=== PATIENT | female | born 1955 | race Caucasian/White ===

== ENCOUNTER → 2016-12-16 | Outpatient (CLI) | payer OTHER ==
--- NOTE | 2016-12-16 14:21 | XR ---
EXAMINATION TYPE: XR knee complete bilateral DATE OF EXAM: 12/16/2016 2:13 PM COMPARISON: NONE HISTORY: Bilateral hip and knee pain TECHNIQUE: 3 views bilateral knees FINDINGS: Left knee: Joint spaces are preserved. No joint effusion is evident. No acute fractures are evident. Right knee: Joint spaces are preserved. No acute fractures are evident. No joint effusion is evident. IMPRESSION: 1. Normal bilateral knees
--- NOTE | 2016-12-16 14:23 | XR ---
EXAMINATION TYPE: XR Hip Bilateral Complete DATE OF EXAM: 12/16/2016 2:13 PM COMPARISON: NONE HISTORY: Bilateral hip and knee pain TECHNIQUE: 2 views bilateral hips FINDINGS: There is narrowing of the joint space of the left hip. The femoral head articulates with th e acetabulum. No acute fractures evident. There is narrowing of the joint space of the right hip. Femoral head articulates with the acetabulum. No acute fractures are evident. IMPRESSION: 1. Mild to moderate bilateral joint space narrowing of the bilateral hips.
== END | disposition home or self-care (01) ==
LOC: RADXRMAIN 13:46
PROVIDERS: ATTEND Family Medicine
DX: M25.852 Other specified joint disorders, left hip (principal); M25.851 Other specified joint disorders, right hip; M25.551 Pain in right hip; M25.552 Pain in left hip; M25.561 Pain in right knee; M25.562 Pain in left knee
CPT/HCPCS: 73521

== ENCOUNTER → 2019-08-17 | Outpatient (CLI) | payer MEDICARE, BC ==
--- NOTE | 2019-08-17 15:17 | XR ---
EXAMINATION TYPE: XR chest 2V DATE OF EXAM: 08/17/2019 COMPARISON: 09/24/2008 HISTORY: Chest pain and congestion TECHNIQUE: Frontal and lateral views of the chest are obtained. FINDINGS: There is no focal air space opacity, pleural effusion, or pneumothorax seen. The cardiac silhouette size is within normal limits. The osseous structures are intact. Minimal degenerative ch anges of the thoracic spine. IMPRESSION: No acute cardiopulmonary process.
--- NOTE | 2019-08-17 15:26 | XR ---
EXAMINATION TYPE: XR sinus DATE OF EXAM: 08/17/2019 CLINICAL HISTORY: Chronic congestion TECHNIQUE: Abel, John, and lateral image of the skull are obtained. COMPARISON: None. FINDINGS: There is mild mucosal thickening of the right maxillary sinus. Remaining paranasal sinuses and mastoid air cells appear well aerated. Orbits are symmetric. Very minimal rightward nasal septal deviation. Calvarium appears intact. Multiple dental fillings are incidentally seen.. IMPRESSION: Mild right maxillary mucosal thickening.
== END | disposition home or self-care (01) ==
LOC: RADXRMAIN 14:13
PROVIDERS: ATTEND Family Medicine
DX: J32.0 Chronic maxillary sinusitis (principal); R07.89 Other chest pain
CPT/HCPCS: 70220; 71046

== ENCOUNTER → 2020-06-01 | Outpatient (CLI) | payer MEDICARE, BC ==
--- NOTE | 2020-06-01 12:28 | NM ---
EXAMINATION TYPE: NM hepatobiliary wo EF DATE OF EXAM: 06/01/2020 COMPARISON: NONE INDICATION: Gallbladder obstruction TECHNIQUE: After the intravenous administration of 5.02 mCi Tc 99m Mebrofenin hepatobiliary scintigra phy is performed. Images were obtained immediately post injection. FINDINGS: There is prompt uptake and excretion of radiotracer by the liver. Extrahepatic ducts are identified at 14 minutes. Small bowel activity is noted within 19 minutes. There is nonvisualization of the gallbladder through the normal one hour exam. Additional delayed shantell ges were obtained out to 4 hours. No clear evidence of the gallbladder is identified. Some residual w ithin the common bile duct may be present. Findings can be compatible with cystic duct obstruction. IMPRESSION: 1. Findings can be compatible with cystic duct obstruction. Correlate for acute cholecystitis.
== END | disposition home or self-care (01) ==
LOC: RADNMMAIN 07:02
PROVIDERS: ATTEND Family Medicine
DX: K82.0 Obstruction of gallbladder (principal)
CPT/HCPCS: 78226; A9537

== ENCOUNTER → 2020-07-12 | Outpatient (CLI) | payer MEDICARE, BC ==
--- NOTE | 2020-07-12 12:04 | CT ---
EXAMINATION TYPE: CT abdomen wo con DATE OF EXAM: 07/12/2020 COMPARISON: Correlation HIDA scan 06/01/2020 HISTORY: 65-year-old female RUQ pain and diarrhea TECHNIQUE: Contiguous axial scanning of the abdomen without IV contrast. Coronal and sagittal reconst ructions performed. CT DLP: 159.9 mGycm Automated exposure control for dose reduction was used. FINDINGS: Heart normal size without pericardial effusion. Lung bases clear without pleural effusion. Noncontrast appearance of the liver, adrenal glands, spleen, and pancreas, and left kidney within nor mal limits. Mild fullness of the right renal collecting system may be transient. No nephrolithiasis is seen. Gallbladder is surgically absent. Bile duct mildly dilated at 9 mm. No dilated small bowel, free fluid, or free air. No mesenteric or retroperitoneal lymphadenopathy. Mild stool burden. No periglottic inflammatory change. Normal appendix. Degenerative disc disease L5-S1 and facet arthropathy lower lumbar spine. IMPRESSION: 1. THE BILE DUCT IS MILDLY DILATED AT 9 MM. THIS MAY RELATE TO POSTCHOLECYSTECTOMY STATUS. CORRELATE WITH ALKALINE PHOSPHATASE AND BILIRUBIN LEVELS. 2. MILD FULLNESS OF THE RIGHT RENAL COLLECTING SYSTEM, PROBABLY TRANSIENT. NO RENAL CALCULUS IS SEEN. IF THERE IS RIGHT-SIDED RENAL COLIC, CONSIDER A CALCULUS LOCATED MORE INFERIORLY IN THE URETER.
== END | disposition home or self-care (01) ==
LOC: RADCTMAIN 09:08
PROVIDERS: ATTEND Surgery
DX: K83.8 Other specified diseases of biliary tract (principal); N28.89 Other specified disorders of kidney and ureter
CPT/HCPCS: 74150

== ENCOUNTER 2021-07-28 07:57 | Emergency (ER) | payer MEDICARE, BC ==
[2021-07-28 08:09] VITALS: TEMP 98.1
[2021-07-28] MEDS ORDERED: SODIUM CHLORIDE 0.9% 500 ML 500 ML IV STA (08:12)
[2021-07-28] MEDS ORDERED: SODIUM CHLORIDE 0.9% 1,000 ML IV STA (08:12)
[2021-07-28] MEDS ORDERED: ONDANSETRON 4 MG/2 ML VIAL IVP STA (08:45)
[2021-07-28 08:47] LABS: Basophils % (A) 0 %; Eosinophils % (A) 0 %; HCT 40.2 % (34.0-46.0); HGB 13.3 gm/dL (11.4-16.0); Lymphocytes % (A) 21 %; MCH 30.5 pg (25.0-35.0); MCV 92.4 fL (80.0-100.0); Mean Platelet Volume 6.9; Monocytes # (A) 0.3 k/uL (0-1.0); Monocytes % (A) 6 %; Neutrophils # (A) 3.5 k/uL (1.3-7.7); Neutrophils % (A) 71 %; Platelet Count 157 k/uL (150-450); RBC 4.35 m/uL (3.80-5.40); RDW 12.3 % (11.5-15.5); WBC 4.9 k/uL (3.8-10.6)
--- NOTE | 2021-07-28 08:53 | ED ---
General Adult HPI - General Chief complaint: Syncope Stated complaint: cough/fever/sob Time Seen by Provider: 07/28/21 08:01 Source: patient, EMS, RN notes reviewed Mode of arrival: EMS Limitations: no limitations - History of Present Illness Initial comments: 66-year-old female presents emergency Department with chief complaint of generalized weakness, syncopal episode, diarrhea mild cough congestion. Patient has been sick over the last 4 days. Patient has been getting worse in which she feels very thirsty, very weak feeling. Patient denies any abdominal pain. She was placed on antibiotics and steroids. Patient states her blood sugar was elev ated secondary steroids. Patient had multiple sick contacts. Patient did not have a head injury no complaint of head and neck pain. - Related Data Home Medications Medication Instructions Recorded Confirmed ALPRAZolam [Xanax] 1 mg PO BID PRN 05/08/16 07/28/21 Dapagliflozin Propanediol [Farxiga] 10 mg PO DAILY 05/08/16 07/28/21 Multivitamins, Thera [Multivitamin 1 tab PO DAILY 07/28/21 07/28/21 (formulary)] Zinc Gluconate [Zinc] 50 mg PO DAILY 07/28/21 07/28/21 metFORMIN HCL [Glucophage] 1,000 mg PO W/SUPPER 07/28/21 07/28/21 Allergies Allergy/AdvReac Type Severity Reaction Status Date / Time No Known Allergies Allergy Verified 07/28/21 09:54 Review of Systems ROS Statement: Those systems with pertinent positive or pertinent negative responses have been documented in the HPI. ROS Other: All systems not noted in ROS Statement are negative. Past Medical History Past Medical History: Diabetes Mellitus Additional Past Medical History / Comment(s): past hx of palpitations, chest pain History of Any Multi-Drug Resistant Organisms: None Reported Past Surgical History: Orthopedic Surgery Additional Past Surgical History / Comment(s): middle rt hand sx Past Anesthesia/Blood Transfusion Reactions: Motion Sickness Past Psychological History: Anxiety Smoking Status: Never smoker Past Alcohol Use History: None Reported Past Drug Use History: None Reported - Past Family History Brother(s) Family Medical History: Cancer Additional Family Medical History / Comment(s): kidney, skin General Exam Limitations: no limitations General appearance: alert, in no apparent distress Head exam: Present: atraumatic, normocephalic, normal inspection Eye exam: Present: normal appearance, PERRL, EOMI. Absent: scleral icterus, conjunctival injection, periorbital swelling ENT exam: Present: normal oropharynx, mucous membranes dry. Absent: normal exam, mucous membranes moist Neck exam: Present: normal inspection, full ROM. Absent: tenderness, meningismus, lymphadenopathy Respiratory exam: Present: normal lung sounds bilaterally. Absent: respiratory distress, wheezes, rales, rhonchi, stridor Cardiovascular Exam: Present: regular rate, normal rhythm, normal heart sounds. Absent: systolic murmur, diastolic murmur, rubs, gallop, clicks GI/Abdominal exam: Present: soft, normal bowel sounds. Absent: distended, tenderness, guarding, rebound, rigid Neurological exam: Present: alert, oriented X3, CN II-XII intact, reflexes diane l. Absent: motor sensory deficit Skin exam: Present: warm, dry, intact, normal color. Absent: rash Course Vital Signs 07/28/21 07/28/21 07/28/21 08:05 09:53 11:01 Temperature 98.1 F Pulse Rate 86 88 Respiratory 18 16 Rate Blood Pressure 119/66 119/63 O2 Sat by Pulse 95 97 93 L Oximetry 07/28/21 11:42 Temperature Pulse Rate 92 Respiratory 19 Rate Blood Pressure O2 Sat by Pulse 96 Oximetry Medical Decision Making - Medical Decision Making 58-year-old female presented for normalized weakness, not feeling well. Patient x-rays unremarkable patient is covid 19 positive. Patient did have mild hypokalemia which was replaced, hydrated patient be discharged stable condition we discussed. Strict return parameters. - Lab Data Result diagrams: 07/28/21 08:29 07/28/21 08:29 Lab Results 07/28/21 07/28/21 07/28/21 Range/Units 08:29 08:29 08:29 WBC 4.9 (3.8-10.6) k/uL RBC 4.35 (3.80-5.40) m/uL Hgb 13.3 (11.4-16.0) gm/dL Hct 40.2 (34.0-46.0) % MCV 92.4 (80.0-100.0) fL MCH 30.5 (25.0-35.0) pg MCHC 33.0 (31.0-37.0) g/dL RDW 12.3 (11.5-15.5) % Plt Count 157 (150-450) k/uL MPV 6.9 Neutrophils % 71 % Lymphocytes % 21 % Monocytes % 6 % Eosinophils % 0 % Basophils % 0 % Neutrophils # 3.5 (1.3-7.7) k/uL Lymphocytes # 1.0 (1.0-4.8) k/uL Monocytes # 0.3 (0-1.0) k/uL Eosinophils # 0.0 (0-0.7) k/uL Basophils # 0.0 (0-0.2) k/uL PT 9.8 (9.0-12.0) sec INR 0.9 (<1.2) APTT 23.2 (22.0-30.0) sec D-Dimer 0.31 (<0.60) mg/L FEU Sodium 131 L (137-145) mmol/L Potassium 3.4 L (3.5-5.1) mmol/L Chloride 100 (98-107) mmol/L Carbon Dioxide 22 (22-30) mmol/L Anion Gap 9 mmol/L BUN 13 (7-17) mg/dL Creatinine 0.54 (0.52-1.04) mg/dL Est GFR (CKD-EPI)AfAm >90 (>60 ml/min/1.73 sqM) Est GFR (CKD-EPI)NonAf >90 (>60 ml/min/1.73 sqM) Glucose 129 H (74-99) mg/dL Calcium 7.9 L (8.4-10.2) mg/dL Magnesium 2.2 (1.6-2.3) mg/dL Total Bilirubin 0.5 (0.2-1.3) mg/dL AST 60 H (14-36) U/L ALT 32 (4-34) U/L Alkaline Phosphatase 70 (38-126) U/L Troponin I (0.000-0.034) ng/mL Total Protein 5.7 L (6.3-8.2) g/dL Albumin 3.1 L (3.5-5.0) g/dL Urine Color Urine Appearance (Clear) Urine pH (5.0-8.0) Ur Specific [place] (1.001-1.035) Urine Protein (Negative) Urine Glucose (UA) (Negative) Urine Ketones (Negative) Urine Blood (Negative) Urine Nitrite (Negative) Urine Bilirubin (Negative) Urine Urobilinogen (<2.0) mg/dL Ur Leukocyte Esterase (Negative) Coronavirus (PCR) (Not Detectd) 07/28/21 07/28/21 07/28/21 Range/Units 08:29 08:29 11:32 WBC (3.8-10.6) k/uL RBC (3.80-5.40) m/uL Hgb (11.4-16.0) gm/dL Hct (34.0-46.0) % MCV (80.0-100.0) fL MCH (25.0-35.0) pg MCHC (31.0-37.0) g/dL RDW (11.5-15.5) % Plt Count (150-450) k/uL MPV Neutrophils % % Lymphocytes % % Monocytes % % Eosinophils % % Basophils % % Neutrophils # (1.3-7.7) k/uL Lymphocytes # (1.0-4.8) k/uL Monocytes # (0-1.0) k/uL Eosinophils # (0-0.7) k/uL Basophils # (0-0.2) k/uL PT (9.0-12.0) sec INR (<1.2) APTT (22.0-30.0) sec D-Dimer (<0.60) mg/L FEU Sodium (137-145) mmol/L Potassium (3.5-5.1) mmol/L Chloride (98-107) mmol/L Carbon Dioxide (22-30) mmol/L Anion Gap mmol/L BUN (7-17) mg/dL Creatinine (0.52-1.04) mg/dL Est GFR (CKD-EPI)AfAm (>60 ml/min/1.73 sqM) Est GFR (CKD-EPI)NonAf (>60 ml/min/1.73 sqM) Glucose (74-99) mg/dL Calcium (8.4-10.2) mg/dL Magnesium (1.6-2.3) mg/dL Total Bilirubin (0.2-1.3) mg/dL AST (14-36) U/L ALT (4-34) U/L Alkaline Phosphatase (38-126) U/L Troponin I <0.012 (0.000-0.034) ng/mL Total Protein (6.3-8.2) g/dL Albumin (3.5-5.0) g/dL Urine Color Light Yellow Urine Appearance Clear (Clear) Urine pH 5.0 (5.0-8.0) Ur Specific [place] 1.007 (1.001-1.035) Urine Protein Negative (Negative) Urine Glucose (UA) 4+ H (Negative) Urine Ketones 2+ H (Negative) Urine Blood Negative (Negative) Urine Nitrite Negative (Negative) Urine Bilirubin Negative (Negative) Urine Urobilinogen <2.0 (<2.0) mg/dL Ur Leukocyte Esterase Negative (Negative) Coronavirus (PCR) Detected A (Not Detectd) Disposition Clinical Impression: COVID-19, Dehydration Disposition: HOME SELF-CARE Condition: Stable Instructions (If sedation given, give patient instructions): Coronavirus Disease 2019 (COVID-19) Additional Instructions: Please return to the Emergency Department if symptoms worsen or any other concerns. Is patient prescribed a controlled substance at d/c from ED?: No Referrals: Dae Mejia DO [Primary Care Provider] - 1-2 days Time of Disposition: 12:24
[2021-07-28 09:01] LABS: ALT 32 U/L (4-34); AST 60 U/L (14-36); African American GFR (CKD) >90 (>60 ml/min/1.73 sqM); Albumin 3.1 g/dL (3.5-5.0); Alkaline Phosphatase 70 U/L (38-126); Anion Gap 9 mmol/L; Blood Urea Nitrogen 13 mg/dL (7-17); Calcium 7.9 mg/dL (8.4-10.2); Carbon Dioxide 22 mmol/L (22-30); Chloride 100 mmol/L (98-107); Glucose 129 mg/dL (74-99); Magnesium 2.2 mg/dL (1.6-2.3); Non-African American GFR(CKD) >90 (>60 ml/min/1.73 sqM); Potassium 3.4 mmol/L (3.5-5.1); Sodium 131 mmol/L (137-145); Total Bilirubin 0.5 mg/dL (0.2-1.3); Total Protein 5.7 g/dL (6.3-8.2)
--- NOTE | 2021-07-28 09:03 | XR ---
EXAMINATION TYPE: XR chest 2V DATE OF EXAM: 07/28/2021 COMPARISON: 08/17/2019 INDICATION: Syncope TECHNIQUE: Frontal and lateral views of the chest are obtained. FINDINGS: The heart size is normal. The pulmonary vasculature is normal. No suspicious focal consolidations are evident. Minimal atelectasis may be at the left base. IMPRESSION: 1. Minimal atelectasis at the left costophrenic angle.
[2021-07-28 09:13] LABS: INR 0.9 (<1.2); Partial Thromboplastin Time 23.2 sec (22.0-30.0); Prothrombin Time 9.8 sec (9.0-12.0)
[2021-07-28] MEDS ORDERED: POTASSIUM CHLORIDE ER 20 MEQ TAB.ER PO STA (09:26)
[2021-07-28 09:53] VITALS: BP 119/63
[2021-07-28] MEDS ORDERED: SODIUM CHLORIDE 0.9% 500 ML 500 ML IV ONE (09:55)
[2021-07-28] MEDS ORDERED: ACETAMINOPHEN TAB 500 MG TAB PO STA (09:55)
[2021-07-28] MEDS ORDERED: KETOROLAC 15 MG/ML 1 ML VIAL IVP STA (09:55)
[2021-07-28] MEDS ORDERED: CASIRIVIMAB/IMDEVIMAB (EUA) 1,200 MG in SODIUM CHLORIDE 0.9% 100 ML IVPB ONE (10:00)
[2021-07-28] MEDS ORDERED: SODIUM CHLORIDE 0.9% 50 ML IVPB ONE (10:30)
[2021-07-28 11:45] LABS: Appearance,Urine Clear (Clear); Bilirubin,Urine Negative (Negative); Blood,Urine Negative (Negative); Color,Urine Light Yellow; Glucose,Urine (UA) 4+ (Negative); Leukocyte Esterase,Urine Negative (Negative); Nitrite,Urine Negative (Negative); Protein,Urine Negative (Negative); Specific Gravity,Urine 1.007 (1.001-1.035); Urobilinogen,Urine <2.0 mg/dL (<2.0)
[2021-07-28 11:53] LABS: Ketones,Urine 2+ (Negative)
[2021-07-28 12:34] VITALS: PULSE 70; RESP 18
== END 2021-07-28 12:33 | disposition home or self-care (01) ==
LOC: EC 07:57
DX: U07.1 COVID-19 (principal); E86.0 Dehydration; E11.9 Type 2 diabetes mellitus without complications; Z79.84 Long term (current) use of oral hypoglycemic drugs
CPT/HCPCS: 96361 ×2; 99285 ×2; 96375; 36415; 93005; 85379; 80053; 83735; 84484; 85025; 85610; 85730; 81003; 87635; 71046; 96374; M0243; J2405; J1885; Q0243

== ENCOUNTER 2021-07-31 20:13 | Inpatient (IN) | payer MEDICARE, BC ==
[2021-07-31] MEDS ORDERED: ACETAMINOPHEN TAB 325 MG TAB PO PRN (20:45)
[2021-07-31] MEDS: ALBUTEROL HFA INHALER INHALATION PRN (21:41)
--- NOTE | 2021-07-31 21:54 | XR ---
EXAMINATION TYPE: XR chest 1V portable DATE OF EXAM: 07/31/2021 CLINICAL HISTORY: Suspected COVID-19 pneumonia. TECHNIQUE: Portable frontal view of the chest. COMPARISON: 07/28/2021 FINDINGS: The cardiomediastinal silhouette is within normal limits for size. Pulmonary vasculature i s normal. Developing patchy airspace opacity of the right upper lobe. There is also asymmetric hazine ss of the left midlung. No pleural effusion. No pneumothorax seen. No acute displaced osseous fractu re. IMPRESSION: Mild developing multifocal patchy airspace opacities bilaterally likely represents pneumonia.
[2021-07-31 22:30] LABS: Basophils % (A) 0 %; Eosinophils % (A) 0 %; HCT 40.2 % (34.0-46.0); HGB 13.2 gm/dL (11.4-16.0); Lymphocytes # (A) 1.3 k/uL (1.0-4.8); Lymphocytes % (A) 16 %; MCH 30.3 pg (25.0-35.0); MCHC 32.8 g/dL (31.0-37.0); MCV 92.4 fL (80.0-100.0); Mean Platelet Volume 7.5; Monocytes # (A) 0.3 k/uL (0-1.0); Monocytes % (A) 4 %; Neutrophils # (A) 6.4 k/uL (1.3-7.7); Neutrophils % (A) 78 %; Platelet Count 296 k/uL (150-450); RBC 4.35 m/uL (3.80-5.40); RDW 12.3 % (11.5-15.5); WBC 8.2 k/uL (3.8-10.6)
[2021-07-31 22:54] LABS: INR 0.8 (<1.2); Partial Thromboplastin Time 21.8 sec (22.0-30.0); Prothrombin Time 9.3 sec (9.0-12.0)
[2021-07-31 22:55] LABS: ALT 21 U/L (4-34); AST 27 U/L (14-36); African American GFR (CKD) >90 (>60 ml/min/1.73 sqM); Alkaline Phosphatase 89 U/L (38-126); Anion Gap 9 mmol/L; Blood Urea Nitrogen 16 mg/dL (7-17); C Reactive Protein 7.9 mg/dL (<1.0); Calcium 8.5 mg/dL (8.4-10.2); Carbon Dioxide 23 mmol/L (22-30); Chloride 101 mmol/L (98-107); Glucose 181 mg/dL (74-99); LDH 704 U/L (313-618); Magnesium 2.2 mg/dL (1.6-2.3); Non-African American GFR(CKD) >90 (>60 ml/min/1.73 sqM); Potassium 4.5 mmol/L (3.5-5.1); Sodium 133 mmol/L (137-145); Total Bilirubin 0.4 mg/dL (0.2-1.3); Total Protein 5.8 g/dL (6.3-8.2)
[2021-07-31] MEDS: DEXAMETHASONE SOD PHOSPHATE 10 MG/ML 1 ML VIAL IVP SCH (22:57)
[2021-07-31] MEDS ORDERED: ONDANSETRON 4 MG/2 ML VIAL IVP PRN (23:38)
[2021-07-31] MEDS ORDERED: ASPIRIN 81 MG PO PRN (23:41)
--- NOTE | 2021-08-01 00:23 | ED ---
General Adult HPI - General Chief complaint: Shortness of Breath Stated complaint: covid+, sob Time Seen by Provider: 07/31/21 20:35 Source: patient, RN notes reviewed, old records reviewed Mode of arrival: EMS Limitations: no limitations - History of Present Illness Initial comments: I evaluated the patient when she was placed in a room. Patient is a 66-year-old female with past medical history remarkable for diabetes who presents emergency Department complaining of being Covid positive worsening shortness of breath. Patient's daughter is a nurse and they've been monitoring her oxygenation at home, and it was an 80%'s today which is why she percents emergency department for evaluation. She states she is not really short of breath but feels f atigued. States that she tested positive on Thursday with most of her symptoms starting last Thursday. Is currently Thursday. She states all last week she was also treated for possible sinus infection she does have a history of this. She is not vaccinated for COVID-19 and has no known exposures. Denies any fevers. Patient's daughter did give her a one-time dose of ivermectin at home today. They brought her to emergency department for further evaluation. She denies any chest pain, abdominal pain. Denies any nausea, vomiting, diarrhea. She otherwise has no acute complaints at this time. Patient was hypoxic to 85% on room air upon arrival.Patient does endorse a nonproductive cough. - Related Data Home Medications Medication Instructions Recorded Confirmed ALPRAZolam [Xanax] 0.5 - 1 mg PO BID PRN 05/08/16 07/31/21 Dapagliflozin Propanediol [Farxiga] 10 mg PO DAILY 05/08/16 07/31/21 Multivitamins, Thera [Multivitamin 1 tab PO DAILY 07/28/21 07/31/21 (formulary)] Zinc Gluconate [Zinc] 50 mg PO DAILY 07/28/21 07/31/21 metFORMIN HCL [Glucophage] 1,000 mg PO W/SUPPER 07/28/21 07/31/21 Aspirin EC [Ecotrin Low Dose] 81 mg PO DAILY PRN 07/31/21 07/31/21 Azithromycin [Zithromax] 500 mg PO DAILY 07/31/21 07/31/21 Cholecalciferol (Vitamin D3) 125 mcg PO DAILY 07/31/21 07/31/21 [Vitamin D3 (125 MCG = 5,000 IU)] Famotidine [Pepcid] 20 mg PO DAILY 07/31/21 07/31/21 Montelukast [Singulair] 10 mg PO DAILY 07/31/21 07/31/21 Promethazine HCl 25 mg PO BID PRN 07/31/21 07/31/21 Quercetin Supplement 1 tab PO DAILY 07/31/21 07/31/21 predniSONE See Taper PO DIRECTED 07/31/21 07/31/21 Allergies Allergy/AdvReac Type Severity Reaction Status Date / Time No Known Allergies Allergy Verified 07/31/21 21:41 Review of Systems ROS Statement: Those systems with pertinent positive or pertinent negative responses have been documented in the HPI. Review of Systems: CONST: Endorses fatigue EYES: Denies blurry vision ENT: Denies nasal congestion C/V: Denies Chest pain RESP: Denies shortness of breath . Endorses cough GI: Denies abdominal pain : Denies dysuria SKIN: Denies rash. MSK: Denies joint pain. NEURO: Denies headache ROS Other: All systems not noted in ROS Statement are negative. Past Medical History Past Medical History: Diabetes Mellitus Additional Past Medical History / Comment(s): past hx of palpitations, chest pain History of Any Multi-Drug Resistant Organisms: None Reported Past Surgical History: Orthopedic Surgery Additional Past Surgical History / Comment(s): middle rt hand sx Past Anesthesia/Blood Transfusion Reactions: Motion Sickness Past Psychological History: Anxiety Smoking Status: Never smoker Past Alcohol Use History: None Reported Past Drug Use History: None Reported - Past Family History Brother(s) Family Medical History: Cancer Additional Family Medical History / Comment(s): kidney, skin General Exam - General Exam Comments Initial Comments: General: Appears in no acute distress. HEAD: Normal with no signs of head trauma. EYES: PERRLA, EOMI, conjunctiva normal, no discharge. ENT: Hearing grossly intact, normal oropharynx. RESPIRATORY: Coarse breath sounds bilaterally. No increased work of breathing. Hypoxic to 85% on room air, saturating 94% on 4 L nasal cannula C/V: Regular rate and rhythm. S1 and S2 auscultated, no edema, peripheral pulses 2+ and intact throughout ABD: Abd is soft, nontender, nondistended EXT: Normal range of motion, no obvious deformity SKIN: No rashes or lesions observed on exposed skin. NEURO: Alert and oriented x 4. Cranial nerves II-XII intact. No focal sensory or strength deficits. Limitations: no limitations Course Vital Signs 07/31/21 20:20 Temperature 99.2 F Pulse Rate 88 Respiratory 18 Rate Blood Pressure 117/67 O2 Sat by Pulse 85 L Oximetry Medical Decision Making - Medical Decision Making Based on the patient's presentation and physical exam, she appears to be expressing hypoxic respiratory failure secondary to COVID-19 pneumonia. Therefore we will obtain COVID-19 labs, chest x-ray, EKG, troponin. She'll be given twice a day Decadron in addition to Tylenol for fever control. She'll also be given albuterol breathing treatments. Infectious disease and pulmonology were both consulted. Screening EKG will be obtained. We will continue on 4 L nasal cannula she is saturating well at this time. She was in agreement this plan. Patient's chest x-ray shows findings concerning for multifocal patchy airspace opacities likely representing pneumonia in the setting of COVID-19 infection. Laboratory studies are remarkable for a normal d-dimer. Troponin is negative. LDH is elevated to 704. CRP is elevated to 7.9. She is Covid positive. She has mild hyponatremia of 133. EKG shows no signs of acute ischemia. Lactic acid is within normal limits. At this time, I discussed with the patient as well as her daughter that I would like to admitted to the hospital for her hypoxic respiratory failure secondary to COVID-19 pneumonia. They were in agreement this plan. I spoke with the admitting team under Dr. Brown who accepted the patient. She was admitted to medical floor to telemetry bed in serious condition. - Lab Data Result diagrams: 07/31/21 22:13 07/31/21 22:13 Lab Results 07/31/21 07/31/21 07/31/21 Range/Units 22:13 22:13 22:13 WBC 8.2 (3.8-10.6) k/uL RBC 4.35 (3.80-5.40) m/uL Hgb 13.2 (11.4-16.0) gm/dL Hct 40.2 (34.0-46.0) % MCV 92.4 (80.0-100.0) fL MCH 30.3 (25.0-35.0) pg MCHC 32.8 (31.0-37.0) g/dL RDW 12.3 (11.5-15.5) % Plt Count 296 (150-450) k/uL MPV 7.5 Neutrophils % 78 % Lymphocytes % 16 % Monocytes % 4 % Eosinophils % 0 % Basophils % 0 % Neutrophils # 6.4 (1.3-7.7) k/uL Lymphocytes # 1.3 (1.0-4.8) k/uL Monocytes # 0.3 (0-1.0) k/uL Eosinophils # 0.0 (0-0.7) k/uL Basophils # 0.0 (0-0.2) k/uL PT 9.3 (9.0-12.0) sec INR 0.8 (<1.2) APTT 21.8 L (22.0-30.0) sec D-Dimer 0.33 (<0.60) mg/L FEU Sodium (137-145) mmol/L Potassium (3.5-5.1) mmol/L Chloride (98-107) mmol/L Carbon Dioxide (22-30) mmol/L Anion Gap mmol/L BUN (7-17) mg/dL Creatinine (0.52-1.04) mg/dL Est GFR (CKD-EPI)AfAm (>60 ml/min/1.73 sqM) Est GFR (CKD-EPI)NonAf (>60 ml/min/1.73 sqM) Glucose (74-99) mg/dL Plasma Lactic Acid Guillermo (0.7-2.0) mmol/L Calcium (8.4-10.2) mg/dL Magnesium (1.6-2.3) mg/dL Total Bilirubin (0.2-1.3) mg/dL AST (14-36) U/L ALT (4-34) U/L Alkaline Phosphatase (38-126) U/L Lactate Dehydrogenase (313-618) U/L Troponin I <0.012 (0.000-0.034) ng/mL C-Reactive Protein (<1.0) mg/dL Total Protein (6.3-8.2) g/dL Albumin (3.5-5.0) g/dL Coronavirus (PCR) (Not Detectd) 07/31/21 07/31/21 07/31/21 Range/Units 22:13 22:13 22:13 WBC (3.8-10.6) k/uL RBC (3.80-5.40) m/uL Hgb (11.4-16.0) gm/dL Hct (34.0-46.0) % MCV (80.0-100.0) fL MCH (25.0-35.0) pg MCHC (31.0-37.0) g/dL RDW (11.5-15.5) % Plt Count (150-450) k/uL MPV Neutrophils % % Lymphocytes % % Monocytes % % Eosinophils % % Basophils % % Neutrophils # (1.3-7.7) k/uL Lymphocytes # (1.0-4.8) k/uL Monocytes # (0-1.0) k/uL Eosinophils # (0-0.7) k/uL Basophils # (0-0.2) k/uL PT (9.0-12.0) sec INR (<1.2) APTT (22.0-30.0) sec D-Dimer (<0.60) mg/L FEU Sodium 133 L (137-145) mmol/L Potassium 4.5 (3.5-5.1) mmol/L Chloride 101 (98-107) mmol/L Carbon Dioxide 23 (22-30) mmol/L Anion Gap 9 mmol/L BUN 16 (7-17) mg/dL Creatinine 0.48 L (0.52-1.04) mg/dL Est GFR (CKD-EPI)AfAm >90 (>60 ml/min/1.73 sqM) Est GFR (CKD-EPI)NonAf >90 (>60 ml/min/1.73 sqM) Glucose 181 H (74-99) mg/dL Plasma Lactic Acid Guillermo 1.4 (0.7-2.0) mmol/L Calcium 8.5 (8.4-10.2) mg/dL Magnesium 2.2 (1.6-2.3) mg/dL Total Bilirubin 0.4 (0.2-1.3) mg/dL AST 27 (14-36) U/L ALT 21 (4-34) U/L Alkaline Phosphatase 89 (38-126) U/L Lactate Dehydrogenase 704 H (313-618) U/L Troponin I (0.000-0.034) ng/mL C-Reactive Protein 7.9 H (<1.0) mg/dL Total Protein 5.8 L (6.3-8.2) g/dL Albumin 3.0 L (3.5-5.0) g/dL Coronavirus (PCR) Detected A (Not Detectd) - EKG Data -: EKG Interpreted by Me EKG Comments: 12-lead Electrocardiogram Interpretation Note EKG was reviewed and interpreted by myself. 12-lead ECG performed at 0025 is interpreted by me as revealing normal sinus rhythm at a rate of 86 beats per minute. Tiff is normal. CT interval is 176 ms, QTc is 1428 ms, QRS is 70 ms.. There is an isolated T-wave inversion in lead III.. R wave progression across the precordium was satisfactory. By my interpretation this EKG is non-diagnostic for acute ischemia. Disposition Clinical Impression: Pneumonia due to COVID-19 virus, Acute respiratory failure with hypoxia Disposition: ADMITTED IP TO THIS HOSP Condition: Serious
[2021-08-01] MEDS ORDERED: INSULIN ASPART (NovoLOG) 100 UNIT/ML VIAL SQ SCH (07:30)
[2021-08-01 07:38] LABS: Glucose,Whole Blood 182 mg/dL (75-99)
[2021-08-01] MEDS: ALBUTEROL HFA INHALER INHALATION PRN ×4 (08:01→21:28)
[2021-08-01] MEDS: ENOXAPARIN 40 MG/0.4 ML SYRINGE SQ SCH (08:07)
[2021-08-01] MEDS: MONTELUKAST 10 MG TAB PO SCH (08:08)
[2021-08-01] MEDS: FAMOTIDINE 20 MG TAB PO SCH (08:08)
[2021-08-01 08:44] LABS: Basophils % (A) 0 %; Eosinophils % (A) 0 %; HCT 46.4 % (34.0-46.0); HGB 15.2 gm/dL (11.4-16.0); Lymphocytes % (A) 17 %; MCH 31.1 pg (25.0-35.0); MCHC 32.7 g/dL (31.0-37.0); MCV 94.9 fL (80.0-100.0); Monocytes # (A) 0.1 k/uL (0-1.0); Monocytes % (A) 2 %; Neutrophils # (A) 4.5 k/uL (1.3-7.7); Neutrophils % (A) 79 %; Platelet Count 322 k/uL (150-450); RBC 4.89 m/uL (3.80-5.40); RDW 12.2 % (11.5-15.5); WBC 5.7 k/uL (3.8-10.6)
[2021-08-01 08:54] LABS: African American GFR (CKD) >90 (>60 ml/min/1.73 sqM); Anion Gap 12 mmol/L; Blood Urea Nitrogen 18 mg/dL (7-17); Calcium 9.4 mg/dL (8.4-10.2); Carbon Dioxide 25 mmol/L (22-30); Chloride 101 mmol/L (98-107); Glucose 195 mg/dL (74-99); Non-African American GFR(CKD) >90 (>60 ml/min/1.73 sqM); Potassium 5.2 mmol/L (3.5-5.1); Sodium 138 mmol/L (137-145)
--- NOTE | 2021-08-01 10:06 | P.CNPUL ---
History of Present Illness Consult date: 08/01/21 Requesting physician: John Brown Reason for consult: dyspnea, abnormal CXR/CT Chief complaint: Shortness of breath, cough, congestion History of present illness: This is a very pleasant 66-year-old female patient who follows with Dr. Mejia as her primary care provider. She has a history of diabetes mellitus, anxiety, ALLERGIES. Approximate 2 weeks ago she started having cough sneezing sinus congestion and was treated with antibiotics and steroids in the outpatient setting. Her symptoms did not improve and she was seen here in the emergency room on 07/28/2021 and was found to be CoVID positive and was treated with monoclonal antibodies. She is not vaccinated. Her symptoms progressed and she was found to be hypoxemic at home with O2 saturation between 80 and 85% on room air was brought into the emergency room last evening. Recently, she is sitting up in bed. Awake and alert in no acute distress. She is maintaining O2 saturations in the mid 90s on 2 L/m per nasal cannula. He is afebrile. Hemodynamically stable. X-ray is now showing mild developing multifocal patchy airspace opacities new compared to 07/28/2021. Count 5.7. Hemoglobin 15.2. D- dimer 0.33. Sodium 138. Potassium 5.2. Creatinine 0.60. LDH 704. C-reactive protein 7.9. Pro-calcitonin 0.15. Martinez virus positive. She's been initiated on Decadron, Lovenox and vitamin supplements. She is outside the window for Remdesivir. Review of Systems REVIEW OF SYSTEMS: CONSTITUTIONAL: Denies any recent significant weight loss or weight gain. EYES: Denies change in vision. EARS, NOSE, MOUTH, THROAT: Denies headaches, denies sore throat. CARDIOVASCULAR: Denies chest pain, palpitations or syncopal episodes. RESPIRATORY: Positive for shortness of breath, cough, congestion no hemoptysis. GASTROINTESTINAL: Positive for diarrhea GENITOURINARY: Denies hematuria, denies infections. MUSKULOSKELETAL: Denies pain, denies swelling. INTEGUMENTARY: Denies rash, denies eczema. NEUROLOGICAL: Denies recent memory loss, no recent seizure activity. PSYCHIATRIC: Denies anxiety, denies depression. HEMATOLOGIC/LYMPHATIC: Denies anemia, denies enlarged lymph nodes. Past Medical History Past Medical History: Diabetes Mellitus Additional Past Medical History / Comment(s): past hx of palpitations, chest pain History of Any Multi-Drug Resistant Organisms: None Reported Past Surgical History: Orthopedic Surgery Additional Past Surgical History / Comment(s): middle rt hand sx Past Anesthesia/Blood Transfusion Reactions: Motion Sickness Past Psychological History: Anxiety Smoking Status: Never smoker Past Alcohol Use History: None Reported Past Drug Use History: None Reported - Past Family History Brother(s) Family Medical History: Cancer Additional Family Medical History / Comment(s): kidney, skin Medications and Allergies Home Medications Medication Instructions Recorded Confirmed Type ALPRAZolam [Xanax] 0.5 - 1 mg PO BID PRN 05/08/16 07/31/21 History Dapagliflozin Propanediol [Farxiga] 10 mg PO DAILY 05/08/16 07/31/21 History Multivitamins, Thera [Multivitamin 1 tab PO DAILY 07/28/21 07/31/21 History (formulary)] Zinc Gluconate [Zinc] 50 mg PO DAILY 07/28/21 07/31/21 History metFORMIN HCL [Glucophage] 1,000 mg PO W/SUPPER 07/28/21 07/31/21 History Aspirin EC [Ecotrin Low Dose] 81 mg PO DAILY PRN 07/31/21 07/31/21 History Azithromycin [Zithromax] 500 mg PO DAILY 07/31/21 07/31/21 History Cholecalciferol (Vitamin D3) 125 mcg PO DAILY 07/31/21 07/31/21 History [Vitamin D3 (125 MCG = 5,000 IU)] Famotidine [Pepcid] 20 mg PO DAILY 07/31/21 07/31/21 History Montelukast [Singulair] 10 mg PO DAILY 07/31/21 07/31/21 History Promethazine HCl 25 mg PO BID PRN 07/31/21 07/31/21 History Quercetin Supplement 1 tab PO DAILY 07/31/21 07/31/21 History predniSONE See Taper PO DIRECTED 07/31/21 07/31/21 History Allergies Allergy/AdvReac Type Severity Reaction Status Date / Time No Known Allergies Allergy Verified 07/31/21 21:41 Physical Exam Vitals: Vital Signs Temp Pulse Resp BP Pulse Ox 08/01/21 07:43 98.6 F 84 18 100/61 97 08/01/21 03:33 75 17 117/67 94 L 07/31/21 20:20 99.2 F 88 18 117/67 85 L Intake and Output 07/31/21 08/01/21 08/01/21 22:59 06:59 14:59 Other: Weight 52.617 kg GENERAL EXAM: Alert, pleasant 66-year-old female patient, on 2 L nasal cannula, comfortable in no apparent distress. HEAD: Normocephalic. EYES: Normal reaction of pupils, equal size. NOSE: Clear with pink turbinates. THROAT: No erythema or exudates. NECK: No masses, no JVD. CHEST: No chest wall deformity. LUNGS: Equal air entry with faint crackles in the posterior bases. CVS: S1 and S2 normal with no audible murmur, regular rhythm. ABDOMEN: No hepatosplenomegaly, normal bowel sounds, no guarding or rigidity. SPINE: No scoliosis or deformity SKIN: No rashes CENTRAL NERVOUS SYSTEM: No focal deficits, tone is normal in all 4 extremities. EXTREMITIES: There is no peripheral edema. No clubbing, no cyanosis. Peripheral pulses are intact. Results - Laboratory Findings CBC and BMP: 08/01/21 08:18 08/01/21 08:18 PT/INR, D-dimer PT 9.3 sec (9.0-12.0) 07/31/21 22:13 INR 0.8 (<1.2) 07/31/21 22:13 D-Dimer 0.33 mg/L FEU (<0.60) 07/31/21 22:13 Abnormal lab findings: Abnormal Labs 07/31/21 07/31/21 07/31/21 22:13 22:13 22:13 Hct APTT 21.8 L Sodium 133 L Potassium BUN Creatinine 0.48 L Glucose 181 H POC Glucose (mg/dL) Ferritin 1517.0 H Lactate Dehydrogenase 704 H C-Reactive Protein 7.9 H Total Protein 5.8 L Albumin 3.0 L Procalcitonin Coronavirus (PCR) Detected A 07/31/21 08/01/21 08/01/21 22:13 07:35 08:18 Hct 46.4 H APTT Sodium Potassium BUN Creatinine Glucose POC Glucose (mg/dL) 182 H Ferritin Lactate Dehydrogenase C-Reactive Protein Total Protein Albumin Procalcitonin 0.15 H Coronavirus (PCR) 08/01/21 08:18 Hct APTT Sodium Potassium 5.2 H BUN 18 H Creatinine Glucose 195 H POC Glucose (mg/dL) Ferritin Lactate Dehydrogenase C-Reactive Protein Total Protein Albumin Procalcitonin Coronavirus (PCR) - Diagnostic Findings Chest x-ray: image reviewed Assessment and Plan Assessment: 1 Acute hypoxemic respiratory failure secondary to COVID-19 pneumonia. Not vaccinated. Outside the window for Remdesivir. Received monoclonal antibodies on 07/28/2021. 2 Mild elevation in inflammatory markers secondary to above 3 Diabetes mellitus 4 History of environmental ALLERGIES 5 History of anxiety Plan: The patient was seen and evaluated by Dr. Cloud X-ray and labs reviewed Outside the window for Remdesivir Not meeting criteria for Baricitinib Continue Decadron, Lovenox, vitamin supplements Titrate the FiO2 as tolerated We will continue to follow and make further recommendations based on her clinical status I, the cosigning physician, performed a history & physical examination of the patient. Lungs sounds crackles in the posterior bases. Maintaining good O2 saturations in the 90s on 2 L/m per nasal cannula. I discussed the assessment and plan of care with my nurse practitioner, Amelia Biggs. I attest to the above note as dictated by her. Time with Patient: Greater than 30
[2021-08-01] MEDS: ZINC SULFATE 220 MG CAP PO SCH (10:23)
[2021-08-01] MEDS: DEXAMETHASONE SOD PHOSPHATE 10 MG/ML 1 ML VIAL IVP SCH ×2 (10:27→21:01)
[2021-08-01 11:57] LABS: Glucose,Whole Blood 149 mg/dL (75-99)
[2021-08-01] MEDS ORDERED: ALPRAZolam 1 MG TAB PO PRN (12:00)
[2021-08-01 13:45] LABS: Glucose,Whole Blood 312 mg/dL (75-99)
--- NOTE | 2021-08-01 14:21 | P.HPIM ---
History of Present Illness H&P Date: 08/01/21 HISTORY OF PRESENT ILLNESS This is a 66-year-old female patient of Dr. Mejia with past medical history of diabetes mellitus type 2, generalized anxiety disorder, seasonal ALLERGIES. Patient states that symptoms started approximately 2 weeks ago and she contacted her PCP and was placed on a Z-Zheng and prednisone but did not have Covid 19 testing done at that time. She subsequently had developed some diarrhea. On Thursday morning she came into the hospital to the emergency center for evaluation due to generalized weakness and has syncopal episode along with diarrhea cough and congestion. Covid 19 testing came back positive and patient recieved Casirivimab/Imdevimab monoclonal antibiotics and was discharged home with planned follow-up with her PCP. Patient's daughter is a nurse and she was helping patient prone daily, chest physical therapy. She took one dose of ivermectin and continued on prednisone and azithromycin and probiotic. They were monitoring her pulse ox at home and it dropped down to 80% and EMS was called and patient was brought into the emergency center to be reevaluated. Patient was afebrile, heart rate 88, blood pressure 117/67, pulse ox 85% on room air. CBC was unremarkable. Potassium 5.2, creatinine 0.7. Laboratory studies from 07/31: Ferritin 1517, LDH 705, C-reactive protein 7.9, pro calcitonin 0.15, d-dimer 0.33. Patient is seen today in the emergency center waiting for a bed on the [facility] floor, pulmonary consult in place. REVIEW OF SYSTEMS Constitutional: No fever, no chills, no night sweats. No weight change. Reports weakness, reports fatigue no lethargy. No daytime sleepiness. EENT: No headache. No blurred vision or double vision, no loss of vision. No loss of Hearing, no ringing in the ears, no dizziness. No nasal drainage or congestion. No epistaxis. No sore throat. Lungs: Reports shortness of breath, reports cough, no sputum production. No wheezing. Cardiovascular: No chest pain, no lower extremity edema. No palpitations. No paroxysmal nocturnal dyspnea. No orthopnea. No lightheadedness or dizziness. No syncopal episodes. Abdominal: No abdominal pain. No nausea, vomiting. Reported diarrhea has resolved. No constipation. No bloody or tarry stools. No loss of appetite. Genitourinary: No dysuria, increased frequency, urgency. No urinary retention. Musculoskeletal: No myalgias. Reports muscle weakness, no gait dysfunction, no frequent falls. No back pain. No neck pain. Integumentary: No wounds, no lesions. No rash or pruritus. No unusual bruis ing. No change in hair or nails. Neurologic: No aphasia. No facial droop. No change in mentation. No head injury. No headache. No paralysis. No paresthesia. Psychiatric: No depression. No anxiety. No mood swings. Endocrine: No abnormal blood sugars. No weight change. No excessive sweating or thirst. No cold intolerance. SOCIAL HISTORY Patient is a lifelong nonsmoker, no alcohol marijuana or illicit drug use. She does not have a CPAP or oxygen at home. She is and lives with her . FAMILY HISTORY Father at age 73 from emphysema. Mother at age 91 from old age. Patient has 5 siblings living and 2 brothers have passed. One had aortic aneurysm, kidney cancer and at age 81 after Covid 19. Patient has 6 children with no major medical problems. PHYSICAL EXAMINATION Gen: This is a 66-year-old female. She is resting on the ER stretcher and appears to be comfortable at rest. Patient is able to speak in full sentences. HEENT: Head is atraumatic, normocephalic. Pupils equal, round. Sclerae is anicteric. NECK: Supple. No JVD. No lymphadenopathy. No thyromegaly. LUNGS: Diminished at the bases No wheezes or rhonchi. No intercostal retractions. HEART: Regular rate and rhythm. No murmur. ABDOMEN: Soft. Bowel sounds are present. No masses. No tenderness. EXTREMITIES: No pedal edema. No calf tenderness. NEUROLOGICAL: Patient is awake, alert and oriented x3. Cranial nerves 2 through 12 are grossly intact. ASSESSMENT AND PLAN 1. Acute hypoxic respiratory failure secondary to Covid 19 pneumonia. Patient is status post monoclonal antibiotics on 07/28/2021. Patient will be started on vitamin supplements, Decadron, Lovenox. 2. Covid 19 diagnosed on 07/28. 3. Diabetes mellitus type 2. Continue metformin 1000 mg daily, NovoLog scale before meals and at bedtime, Farxiga 10 mg daily-maybe brought from home. 4. Generalized anxiety disorder. Continue Xanax 0.5 mg twice daily as needed. 5. GI prophylaxis. Protonix. 6. DVT prophylaxis. Lovenox. Patient will be admitted to the hospital for a minimum of 2 night stay. DISCHARGE PLAN Return home. Impression and plan of care have been directed as dictated by the signing physician. Christina Rapp nurse practitioner acting as scribe for signing physician. Past Medical History Past Medical History: Diabetes Mellitus Additional Past Medical History / Comment(s): past hx of palpitations, chest pain History of Any Multi-Drug Resistant Organisms: None Reported Past Surgical History: Orthopedic Surgery Additional Past Surgical History / Comment(s): middle rt hand sx Past Anesthesia/Blood Transfusion Reactions: Motion Sickness Past Psychological History: Anxiety Smoking Status: Never smoker Past Alcohol Use History: None Reported Past Drug Use History: None Reported - Past Family History Brother(s) Family Medical History: Cancer Additional Family Medical History / Comment(s): kidney, skin Medications and Allergies Home Medications Medication Instructions Recorded Confirmed Type ALPRAZolam [Xanax] 0.5 - 1 mg PO BID PRN 05/08/16 07/31/21 History Dapagliflozin Propanediol [Farxiga] 10 mg PO DAILY 05/08/16 07/31/21 History Multivitamins, Thera [Multivitamin 1 tab PO DAILY 07/28/21 07/31/21 History (formulary)] Zinc Gluconate [Zinc] 50 mg PO DAILY 07/28/21 07/31/21 History metFORMIN HCL [Glucophage] 1,000 mg PO W/SUPPER 07/28/21 07/31/21 History Aspirin EC [Ecotrin Low Dose] 81 mg PO DAILY PRN 07/31/21 07/31/21 History Azithromycin [Zithromax] 500 mg PO DAILY 07/31/21 07/31/21 History Cholecalciferol (Vitamin D3) 125 mcg PO DAILY 07/31/21 07/31/21 History [Vitamin D3 (125 MCG = 5,000 IU)] Famotidine [Pepcid] 20 mg PO DAILY 07/31/21 07/31/21 History Montelukast [Singulair] 10 mg PO DAILY 07/31/21 07/31/21 History Promethazine HCl 25 mg PO BID PRN 07/31/21 07/31/21 History Quercetin Supplement 1 tab PO DAILY 07/31/21 07/31/21 History predniSONE See Taper PO DIRECTED 07/31/21 07/31/21 History Allergies Allergy/AdvReac Type Severity Reaction Status Date / Time No Known Allergies Allergy Verified 07/31/21 21:41 Physical Exam Vitals: Vital Signs Temp Pulse Resp BP Pulse Ox 08/01/21 07:43 98.6 F 84 18 100/61 97 08/01/21 03:33 75 17 117/67 94 L 07/31/21 20:20 99.2 F 88 18 117/67 85 L Intake and Output 07/31/21 08/01/21 08/01/21 22:59 06:59 14:59 Other: Weight 52.617 kg Results CBC & Chem 7: 08/01/21 08:18 08/01/21 08:18 Labs: Abnormal Lab Results - Last 24 Hours (Table) 07/31/21 07/31/21 07/31/21 Range/Units 22:13 22:13 22:13 Hct (34.0-46.0) % APTT 21.8 L (22.0-30.0) sec Sodium 133 L (137-145) mmol/L Potassium (3.5-5.1) mmol/L BUN (7-17) mg/dL Creatinine 0.48 L (0.52-1.04) mg/dL Glucose 181 H (74-99) mg/dL POC Glucose (mg/dL) (75-99) mg/dL Ferritin 1517.0 H (10.0-291.0) ng/mL Lactate Dehydrogenase 704 H (313-618) U/L C-Reactive Protein 7.9 H (<1.0) mg/dL Total Protein 5.8 L (6.3-8.2) g/dL Albumin 3.0 L (3.5-5.0) g/dL Procalcitonin (0.02-0.09) ng/mL Coronavirus (PCR) Detected A (Not Detectd) 07/31/21 08/01/21 08/01/21 Range/Units 22:13 07:35 08:18 Hct 46.4 H (34.0-46.0) % APTT (22.0-30.0) sec Sodium (137-145) mmol/L Potassium (3.5-5.1) mmol/L BUN (7-17) mg/dL Creatinine (0.52-1.04) mg/dL Glucose (74-99) mg/dL POC Glucose (mg/dL) 182 H (75-99) mg/dL Ferritin (10.0-291.0) ng/mL Lactate Dehydrogenase (313-618) U/L C-Reactive Protein (<1.0) mg/dL Total Protein (6.3-8.2) g/dL Albumin (3.5-5.0) g/dL Procalcitonin 0.15 H (0.02-0.09) ng/mL Coronavirus (PCR) (Not Detectd) 08/01/21 Range/Units 08:18 Hct (34.0-46.0) % APTT (22.0-30.0) sec Sodium (137-145) mmol/L Potassium 5.2 H (3.5-5.1) mmol/L BUN 18 H (7-17) mg/dL Creatinine (0.52-1.04) mg/dL Glucose 195 H (74-99) mg/dL POC Glucose (mg/dL) (75-99) mg/dL Ferritin (10.0-291.0) ng/mL Lactate Dehydrogenase (313-618) U/L C-Reactive Protein (<1.0) mg/dL Total Protein (6.3-8.2) g/dL Albumin (3.5-5.0) g/dL Procalcitonin (0.02-0.09) ng/mL Coronavirus (PCR) (Not Detectd)
[2021-08-01] MEDS: ASCORBIC ACID 500 MG TAB PO SCH (14:32)
[2021-08-01] MEDS: CHOLECALCIFEROL 25 MCG (1000 IU) TABLET PO SCH (14:32)
[2021-08-01 14:40] LABS: Glucose,Whole Blood 324 mg/dL (75-99)
[2021-08-01] MEDS ORDERED: INSULIN ASPART (NovoLOG) 100 UNIT/ML VIAL SQ STA (14:58)
[2021-08-01] MEDS: INSULIN ASPART (NovoLOG) 100 UNIT/ML VIAL SQ SCH ×3 (15:01→21:03)
[2021-08-01 16:58] LABS: Glucose,Whole Blood 209 mg/dL (75-99)
[2021-08-01] MEDS ORDERED: metFORMIN 500 MG TAB PO SCH (17:30)
[2021-08-01 20:46] LABS: Glucose,Whole Blood 146 mg/dL (75-99)
[2021-08-02 07:04] LABS: Glucose,Whole Blood 185 mg/dL (75-99)
[2021-08-02] MEDS: ASCORBIC ACID 500 MG TAB PO SCH (07:52)
[2021-08-02] MEDS: MONTELUKAST 10 MG TAB PO SCH (07:52)
[2021-08-02] MEDS: ZINC SULFATE 220 MG CAP PO SCH (07:52)
[2021-08-02] MEDS: CHOLECALCIFEROL 25 MCG (1000 IU) TABLET PO SCH (07:52)
[2021-08-02] MEDS: DEXAMETHASONE SOD PHOSPHATE 10 MG/ML 1 ML VIAL IVP SCH (07:53)
[2021-08-02] MEDS: ENOXAPARIN 40 MG/0.4 ML SYRINGE SQ SCH (07:53)
[2021-08-02] MEDS: FAMOTIDINE 20 MG TAB PO SCH (07:53)
[2021-08-02] MEDS: INSULIN ASPART (NovoLOG) 100 UNIT/ML VIAL SQ SCH ×2 (07:54→11:48)
[2021-08-02] MEDS: ALBUTEROL HFA INHALER INHALATION PRN ×3 (08:37→16:20)
[2021-08-02] MEDS ORDERED: NON FORMULARY DRUG (Dapagliflozin Propanediol [Farxiga] 10 MG Tablet) PO SCH (09:00)
[2021-08-02] MEDS ORDERED: MULTIVITAMINS, THERA 1 EACH TAB PO SCH (09:00)
--- NOTE | 2021-08-02 09:11 | P.CONS ---
History of Present Illness - Reason for Consult Consult date: 08/01/21 covid 19 pneumonia Requesting physician: John Brown - Chief Complaint low pulse ox x 1 day - History of Present Illness History of present illness : Patient is 66-year-old female presenting to the ER for evaluation of hypoxemia and increasing shortness of breath and this patient symptoms started about 2 weeks ago when she started having a cough and sneezing sinus congestion patient was treated with antibiotic and steroids in the outpatient setting by the primary care physician without improvement patient was seen at [facility] ER on 07/28/2021 and the patient have positive Covid test patient was given monoclonal antibodies and the patient was subsequently discharged home however the patient was noticed to have hypoxemia with O2 sats of around 85% on room air for the patient was brought into the ER patient currently denies having any fever or any chills patient is complaining of shortness of breath on minimal exertion patient did have a cough which is mild to moderate intensity and not bringing up any sputum no pleuritic chest pain no nausea no vomiting no abdominal pain no diarrhea on arrival to the ER the patient was afebrile patient was hypoxic with O2 sats of 85% on room air patient did have a normal white count and no lymphopenia D-dimer was normal patient did have a normal creatinine liver enzymes are normal zeng PCR was positive blood culture has been obtained currently pending patient did have a chest x-ray mild developing multifocal opacity likely representing pneumonia patient was admitted to the hospital infectious disease was consulted for further management Review of system: CONSTITUTIONAL: Positive for weakness denies fever. EYES: No complaint. ENT: No complaint. RESPIRATORY: As per history of present illness. CARDIOVASCULAR: No complaint. GENITOURINARY: No complaint. GASTROINTESTINAL: No complaint. MUSCULOSKELETAL: No complaint. INTEGUMENTARY: No complaint. PSYCHOLOGIC: No complaint. ENDOCRINE: No complaint. NEUROLOGIC: No complaint. Past medical history : Reviewed, documented below Past surgical history : Reviewed, documented below Social history: Reviewed, documented below Medications: Reviewed, as documented below EXAMINATION: Vital sigans= Reviewed and documented below GENERAL DESCRIPTION: Elderly female lying in bed, no distress. No tachypnea or accessory muscle of respiration use. HEENT: Shows Pallor , no scleral icterus. Oral mucous membrane is dry. NECK: Trachea central, no thyromegaly. LUNGS: Unlabored breathing. Decrease intensity of breath sounds . No wheeze or crackle. HEART: S1, S2, regular rate and rhythm. ABDOMEN: Soft, no tenderness , guarding or rigidity EXTREMITIES: No edema of feet. SKIN: No rash, no masses palpable. NEUROLOGICAL: The patient is awake, alert, oriented x3, mood and affect normal. LABS AND RADIOLOGY: Reviewed results see below Assessment : Patient presented to hospital with low pulse ox in this patient symptom has been going on for more than 2 weeks and has recently received monoclonal antibodies with evidence of hypoxemia on admission and multifocal pneumonia on the x-ray likely secondary to COVID-19 pneumonia, clinic suspicion low for secondary bacterial pneumonia and the patient is currently out of the therapeutic window for remdesivir Plan: 1-patient has been started on dexamethasone Lovenox zinc and ascorbic acid to continue 2-no need for systemic antibiotic therapy 3-droplet isolation and respiratory support We will follow on clinical condition and cultures to further adjust medication if needed Thank you for this consultation we will follow the patient along with you Past Medical History Past Medical History: Diabetes Mellitus Additional Past Medical History / Comment(s): past hx of palpitations, chest pain History of Any Multi-Drug Resistant Organisms: None Reported Past Surgical History: Orthopedic Surgery Additional Past Surgical History / Comment(s): middle rt hand sx Past Anesthesia/Blood Transfusion Reactions: Motion Sickness Past Psychological History: Anxiety Smoking Status: Never smoker Past Alcohol Use History: None Reported Past Drug Use History: None Reported - Past Family History Brother(s) Family Medical History: Cancer Additional Family Medical History / Comment(s): kidney, skin Medications and Allergies Home Medications Medication Instructions Recorded Confirmed Type ALPRAZolam [Xanax] 0.5 - 1 mg PO BID PRN 05/08/16 07/31/21 History Dapagliflozin Propanediol [Farxiga] 10 mg PO DAILY 05/08/16 07/31/21 History Multivitamins, Thera [Multivitamin 1 tab PO DAILY 07/28/21 07/31/21 History (formulary)] Zinc Gluconate [Zinc] 50 mg PO DAILY 07/28/21 07/31/21 History metFORMIN HCL [Glucophage] 1,000 mg PO W/SUPPER 07/28/21 07/31/21 History Aspirin EC [Ecotrin Low Dose] 81 mg PO DAILY PRN 07/31/21 07/31/21 History Azithromycin [Zithromax] 500 mg PO DAILY 07/31/21 07/31/21 History Cholecalciferol (Vitamin D3) 125 mcg PO DAILY 07/31/21 07/31/21 History [Vitamin D3 (125 MCG = 5,000 IU)] Famotidine [Pepcid] 20 mg PO DAILY 07/31/21 07/31/21 History Montelukast [Singulair] 10 mg PO DAILY 07/31/21 07/31/21 History Promethazine HCl 25 mg PO BID PRN 07/31/21 07/31/21 History Quercetin Supplement 1 tab PO DAILY 07/31/21 07/31/21 History predniSONE See Taper PO DIRECTED 07/31/21 07/31/21 History Allergies Allergy/AdvReac Type Severity Reaction Status Date / Time No Known Allergies Allergy Verified 07/31/21 21:41 Physical Exam Vitals: Vital Signs Temp Pulse Resp BP Pulse Ox 08/01/21 14:31 98.7 F 82 18 110/68 95 08/01/21 07:43 98.6 F 84 18 100/61 97 08/01/21 03:33 75 17 117/67 94 L 07/31/21 20:20 99.2 F 88 18 117/67 85 L Results CBC & Chem 7: 08/01/21 08:18 08/01/21 08:18 Labs: Abnormal Lab Results - Last 24 Hours (Table) 07/31/21 07/31/21 07/31/21 Range/Units 22:13 22:13 22:13 Hct (34.0-46.0) % APTT 21.8 L (22.0-30.0) sec Sodium 133 L (137-145) mmol/L Potassium (3.5-5.1) mmol/L BUN (7-17) mg/dL Creatinine 0.48 L (0.52-1.04) mg/dL Glucose 181 H (74-99) mg/dL POC Glucose (mg/dL) (75-99) mg/dL Ferritin 1517.0 H (10.0-291.0) ng/mL Lactate Dehydrogenase 704 H (313-618) U/L C-Reactive Protein 7.9 H (<1.0) mg/dL Total Protein 5.8 L (6.3-8.2) g/dL Albumin 3.0 L (3.5-5.0) g/dL Procalcitonin (0.02-0.09) ng/mL Coronavirus (PCR) Detected A (Not Detectd) 07/31/21 08/01/21 08/01/21 Range/Units 22:13 07:35 08:18 Hct 46.4 H (34.0-46.0) % APTT (22.0-30.0) sec Sodium (137-145) mmol/L Potassium (3.5-5.1) mmol/L BUN (7-17) mg/dL Creatinine (0.52-1.04) mg/dL Glucose (74-99) mg/dL POC Glucose (mg/dL) 182 H (75-99) mg/dL Ferritin (10.0-291.0) ng/mL Lactate Dehydrogenase (313-618) U/L C-Reactive Protein (<1.0) mg/dL Total Protein (6.3-8.2) g/dL Albumin (3.5-5.0) g/dL Procalcitonin 0.15 H (0.02-0.09) ng/mL Coronavirus (PCR) (Not Detectd) 08/01/21 08/01/21 08/01/21 Range/Units 08:18 11:55 13:43 Hct (34.0-46.0) % APTT (22.0-30.0) sec Sodium (137-145) mmol/L Potassium 5.2 H (3.5-5.1) mmol/L BUN 18 H (7-17) mg/dL Creatinine (0.52-1.04) mg/dL Glucose 195 H (74-99) mg/dL POC Glucose (mg/dL) 149 H 312 H (75-99) mg/dL Ferritin (10.0-291.0) ng/mL Lactate Dehydrogenase (313-618) U/L C-Reactive Protein (<1.0) mg/dL Total Protein (6.3-8.2) g/dL Albumin (3.5-5.0) g/dL Procalcitonin (0.02-0.09) ng/mL Coronavirus (PCR) (Not Detectd) 08/01/21 Range/Units 14:38 Hct (34.0-46.0) % APTT (22.0-30.0) sec Sodium (137-145) mmol/L Potassium (3.5-5.1) mmol/L BUN (7-17) mg/dL Creatinine (0.52-1.04) mg/dL Glucose (74-99) mg/dL POC Glucose (mg/dL) 324 H (75-99) mg/dL Ferritin (10.0-291.0) ng/mL Lactate Dehydrogenase (313-618) U/L C-Reactive Protein (<1.0) mg/dL Total Protein (6.3-8.2) g/dL Albumin (3.5-5.0) g/dL Procalcitonin (0.02-0.09) ng/mL Coronavirus (PCR) (Not Detectd)
[2021-08-02 11:32] LABS: Glucose,Whole Blood 235 mg/dL (75-99)
--- NOTE | 2021-08-02 11:44 | P.PN ---
Subjective Progress Note Date: 08/02/21 Principal diagnosis: Acute hypoxic respiratory failure secondary to COVID-19 pneumonia This is a very pleasant 66-year-old female patient who follows with Dr. Mejia as her primary care provider. She has a history of diabetes mellitus, anxiety, ALLERGIES. Approximate 2 weeks ago she started having cough sneezing sinus congestion and was treated with antibiotics and steroids in the outpatient setting. Her symptoms did not improve and she was seen here in the emergency room on 07/28/2021 and was found to be CoVID positive and was treated with monoclonal antibodies. She is not vaccinated. Her symptoms progressed and she was found to be hypoxemic at home with O2 saturation between 80 and 85% on room air was brought into the emergency room last evening. Recently, she is sitting up in bed. Awake and alert in no acute distress. She is maintaining O2 saturations in the mid 90s on 2 L/m per nasal cannula. He is afebrile. Hemodynamically stable. X-ray is now showing mild developing multifocal patchy airspace opacities new compared to 07/28/2021. Count 5.7. Hemoglobin 15.2. D- dimer 0.33. Sodium 138. Potassium 5.2. Creatinine 0.60. LDH 704. C-reactive protein 7.9. Pro-calcitonin 0.15. Martinez virus positive. She's been initiated on Decadron, Lovenox and vitamin supplements. She is outside the window for Remdesivir. On 08/02/2021 patient seen in follow-up. She is breathing very comfortably, she is afebrile, she is on 2 L of oxygen pulse ox is 96-98%. She's had no acute events overnight, no fever or chills, she has minimal rales on today's exam, occasional cough. Vital signs have been stable overnight. Remains on Decadron 6 mg twice daily, remains on vitamins including vitamin C, vitamin D and zinc, and patient remains on Lovenox 40 mg daily. Objective - Vital Signs Vital signs: Vital Signs Temp 98.2 F 08/02/21 10:00 Pulse 75 08/02/21 10:00 Resp 17 08/02/21 10:00 BP 111/68 08/02/21 10:00 Pulse Ox 96 08/02/21 10:00 Intake & Output 08/01/21 08/02/2121 18:59 06:59 18:59 Weight 52.617 kg Other: # Voids 1 - Exam GENERAL EXAM: Alert, very pleasant, 66-year-old white female, on 2 L of oxygen with a pulse ox of 96%, comfortable in no apparent distress. HEAD: Normocephalic/atraumatic. EYES: Normal reaction of pupils, equal size. Conjunctiva pink, sclera white. NOSE: Clear with pink turbinates. THROAT: No erythema or exudates. NECK: No masses, no JVD, no thyroid enlargement, no adenopathy. CHEST: No chest wall deformity. Symmetrical expansion. LUNGS: Equal air entry with minimal crackles at the bases CVS: Regular rate and rhythm, normal S1 and S2, no gallops, no murmurs, no rubs ABDOMEN: Soft, nontender. No hepatosplenomegaly, normal bowel sounds, no guarding or rigidity. EXTREMITIES: No clubbing, no edema, no cyanosis, 2+ pulses and upper and lower extremities. MUSCULOSKELETAL: Muscle strength and tone normal. SPINE: No scoliosis or deformity SKIN: No rashes CENTRAL NERVOUS SYSTEM: Alert and oriented -3. No focal deficits, tone is normal in all 4 extremities. PSYCHIATRIC: Alert and oriented -3. Appropriate affect. Intact judgment and insight. - Labs CBC & Chem 7: 08/01/21 08:18 08/01/21 08:18 Labs: Abnormal Lab Results - Last 24 Hours (Table) 08/01/21 08/01/21 08/01/21 Range/Units 11:55 13:43 14:38 POC Glucose (mg/dL) 149 H 312 H 324 H (75-99) mg/dL 08/01/21 08/01/21 08/02/21 Range/Units 16:56 20:42 07:02 POC Glucose (mg/dL) 209 H 146 H 185 H (75-99) mg/dL 08/02/21 Range/Units 11:30 POC Glucose (mg/dL) 235 H (75-99) mg/dL Microbiology - Last 24 Hours (Table) 07/31/21 22:13 Blood Culture - Preliminary Blood No Growth after 24 hours 07/31/21 22:13 Blood Culture - Preliminary Blood No Growth after 24 hours Assessment and Plan Plan: Assessment: #1. Acute hypoxic respiratory failure related to acute COVID-19 pneumonia, non-vaccinated, outside for Remdesivir, status post monoclonal antibodies infusion on 07/28/2021 #2. Diabetes mellitus type 2 #3. Anxiety #4. Lifetime nonsmoker #5. History of environmental ALLERGIES Plan: Continue current medical treatment Continue Decadron Continue Lovenox Continue multivitamins Clinical patient has remained stable since admission, no worsening dyspnea, her oxygen requirement is still at 2 L If remains stable at continues to improve may consider discharge home in the next 24 hours I performed a history & physical examination of the patient and discussed their management with my nurse practitioner, Radha Jo. I reviewed the nurse practitioner's note and agree with the documented findings and plan of care. Lung sounds are positive for basilar rales throughout the lung albright. The findings and the impression was discussed with the patient. I attest to the documentation by the nurse practitioner. Time with Patient: Less than 30
[2021-08-02 14:03] VITALS: BP 114/68; PULSE 71; RESP 15; TEMP 98.6
--- NOTE | 2021-08-02 14:31 | P.DS ---
Providers Date of admission: 07/31/21 23:38 Expected date of discharge: 08/02/21 Attending physician: John Brown Consults: 07/31/21 20:45 Consult Physician Routine Consulting Provider: Jacoby Cloud Consult Reason/Comments: covid 19 pneumonia Do you want consulting provider notified?: Yes, Notify in am 07/31/21 20:46 Consult Physician Stat Consulting Provider: Nathen Britt Consult Reason/Comments: covid 19 pneumonia Do you want consulting provider notified?: Yes, Notify in am Primary care physician: Dae Mejia [facility] Course: HISTORY OF PRESENT ILLNESS This is a 66-year-old female patient of Dr. Mejia with past medical history of diabetes mellitus type 2, generalized anxiety disorder, seasonal ALLERGIES. Patient states that symptoms started approximately 2 weeks ago and she contacted her PCP and was placed on a Z-Zheng and prednisone but did not have Covid 19 testing done at that time. She subsequently had developed some diarrhea. On Thursday morning she came into the hospital to the emergency center for evaluation due to generalized weakness and has syncopal episode along with diarrhea cough and congestion. Covid 19 testing came back positive and patient recieved Casirivimab/Imdevimab monoclonal antibiotics and was discharged home with planned follow-up with her PCP. Patient's daughter is a nurse and she was helping patient prone daily, chest physical therapy. She took one dose of ivermectin and continued on prednisone and azithromycin and probiotic. They were monitoring her pulse ox at home and it dropped down to 80% and EMS was called and patient was brought into the emergency center to be reevaluated. Patient was afebrile, heart rate 88, blood pressure 117/67, pulse ox 85% on room air. CBC was unremarkable. Potassium 5.2, creatinine 0.7. Laboratory studies from 07/31: Ferritin 1517, LDH 705, C-reactive protein 7.9, pro calcitonin 0.15, d-dimer 0.33. Patient is seen today in the emergency center waiting for a bed on the [facility] floor, pulmonary consult in place. 08/02: Patient is currently on O2 at 2 L with pulse ox of 94%. She's been afebrile, heart rate 98 204. Blood pressure 93/56. Patient is reaching 1999 on incentive spirometry. Patient's daughter is at bedside. Reviewed patient's medications and discussed plan. Patient will be discharged home today in stable condition, home oxygen therapy will be arranged. DISCHARGE DIAGNOSES 1. Acute hypoxic respiratory failure secondary to Covid 19 pneumonia. 2. Covid 19 diagnosed on 07/28. 3. Diabetes mellitus type 2. 4. Generalized anxiety disorder. 5. Chronic hypoxic respiratory failure secondary to Covid 19, requiring home oxygen therapy. DISCHARGE PLAN Return home. Impression and plan of care have been directed as dictated by the signing physician. Christina Rapp nurse practitioner acting as scribe for signing physician. Patient Condition at Discharge: Good Plan - Discharge Summary Discharge Rx Participant: No New Discharge Prescriptions: New Dexamethasone [Decadron] 4 mg PO DAILY #7 tablet Albuterol Inhaler [Ventolin Hfa Inhaler] 2 puff INHALATION RT-Q6H PRN #8.5 gm PRN Reason: Shortness Of Breath Or Wheezing Ascorbic Acid [Vitamin C] 1,000 mg PO DAILY tab Continue Dapagliflozin Propanediol [Farxiga] 10 mg PO DAILY ALPRAZolam [Xanax] 0.5 - 1 mg PO BID PRN PRN Reason: Anxiety Zinc Gluconate [Zinc] 50 mg PO DAILY Multivitamins, Thera [Multivitamin (formulary)] 1 tab PO DAILY Quercetin Supplement 1 tab PO DAILY Famotidine [Pepcid] 20 mg PO DAILY Azithromycin [Zithromax] 500 mg PO DAILY metFORMIN HCL [Glucophage] 1,000 mg PO W/SUPPER Aspirin EC [Ecotrin Low Dose] 81 mg PO DAILY PRN PRN Reason: Pain Or Fever > 100.5 Cholecalciferol (Vitamin D3) [Vitamin D3 (125 MCG = 5,000 IU)] 125 mcg PO DAILY Promethazine HCl 25 mg PO BID PRN PRN Reason: Nausea Montelukast [Singulair] 10 mg PO DAILY Discontinued predniSONE See Taper PO DIRECTED Discharge Medication List ALPRAZolam [Xanax] 0.5 - 1 mg PO BID PRN 05/08/16 [History] Dapagliflozin Propanediol [Farxiga] 10 mg PO DAILY 05/08/16 [History] Multivitamins, Thera [Multivitamin (formulary)] 1 tab PO DAILY 07/28/21 [History] Zinc Gluconate [Zinc] 50 mg PO DAILY 07/28/21 [History] metFORMIN HCL [Glucophage] 1,000 mg PO W/SUPPER 07/28/21 [History] Aspirin EC [Ecotrin Low Dose] 81 mg PO DAILY PRN 07/31/21 [History] Azithromycin [Zithromax] 500 mg PO DAILY 07/31/21 [History] Cholecalciferol (Vitamin D3) [Vitamin D3 (125 MCG = 5,000 IU)] 125 mcg PO DAILY 07/31/21 [History] Famotidine [Pepcid] 20 mg PO DAILY 07/31/21 [History] Montelukast [Singulair] 10 mg PO DAILY 07/31/21 [History] Promethazine HCl 25 mg PO BID PRN 07/31/21 [History] Quercetin Supplement 1 tab PO DAILY 07/31/21 [History] Albuterol Inhaler [Ventolin Hfa Inhaler] 2 puff INHALATION RT-Q6H PRN #8.5 gm 08/02/21 [Rx] Ascorbic Acid [Vitamin C] 1,000 mg PO DAILY tab 08/02/21 [Rx] Dexamethasone [Decadron] 4 mg PO DAILY #7 tablet 08/02/21 [Rx] Follow up Appointment(s)/Referral(s): [facility] [NON-STAFF] - As Needed (oxygen) Dae Mejia DO [Primary Care Provider] - 1 Week
[2021-08-02 16:12] LABS: Glucose,Whole Blood 246 mg/dL (75-99)
[2021-08-02 17:09] LABS: C Reactive Protein 4.3 mg/dL (0.00-0.80)
--- NOTE | 2021-08-02 18:46 | PN ---
PROGRESS NOTE DATE OF SERVICE: 08/02/2021 REASON FOR FOLLOWUP: Acute COVID-19 infection. INTERVAL HISTORY: Patient is afebrile. The patient is currently breathing comfortably. Patient denies having any chest pain, shortness of breath. Occasional cough. No abdominal pain or diarrhea. EXAMINATION: Her blood pressure is 114/68 with a pulse of 71, temperature 98.3. She is 96% on 2 L nasal cannula. General description is an elderly female lying in bed in no distress. Respiratory system: Unlabored breathing, decreased intensity of breath sounds. No wheeze. Heart S1, S2. Regular rate and rhythm. Abdomen soft, no tenderness. LAB: D-dimer is 0.22. DIAGNOSTIC IMPRESSION AND PLAN: Patient with acute COVID-19 pneumonia in this patient who has shown overall clinical improvement with current supportive treatment. She will finish a course of dexamethasone, zinc and ascorbic acid and close outpatient followup. Continue supportive care. MMODL / IJN: [id number] /
== END 2021-08-02 16:48 | disposition home or self-care (01) | DRG 177 ==
LOC: EC 20:13 → 4SSUR 23:38
PROVIDERS: ADMIT Internal Medicine Geriatric Medicine; ATTEND Internal Medicine Geriatric Medicine
PROC: 3E0333Z Introduction of Anti-inflammatory into Peripheral Vein, Percutaneous Approach (ICD-10-PCS; principal; 2021-07-31)
DX: U07.1 COVID-19 (principal); J12.82 Pneumonia due to coronavirus disease 2019; J96.21 Acute and chronic respiratory failure with hypoxia; E87.1 Hypo-osmolality and hyponatremia; E11.9 Type 2 diabetes mellitus without complications; F41.1 Generalized anxiety disorder; Z79.82 Long term (current) use of aspirin; Z79.84 Long term (current) use of oral hypoglycemic drugs; Z79.899 Other long term (current) drug therapy; Z80.51 Family history of malignant neoplasm of kidney; Z82.5 Family history of asthma and other chronic lower respiratory diseases
CPT/HCPCS: 36415; 71045; 80048; 80053; 82728; 83605; 83615; 83735; 84145; 84484; 85025; 85379; 85610; 85730; 86140; 87040; 87635; 93005; 94640; 99285

== ENCOUNTER → 2022-12-11 | Outpatient (CLI) | payer MEDICARE, BC ==
--- NOTE | 2022-12-12 09:00 | MM ---
Reason for Exam: Screening (asymptomatic). Last mammogram was performed 8 year(s) and 1 month(s) ago. Patient History: Menarche at age 11. First Full-Term at age 16. Postmenopausal. Patient has history of breast feeding. Paternal grandmother had breast cancer, age 50. Risk Values: Silvia 5 year model risk: 1.2%. NCI Lifetime model risk: 3.9%. Prior Study Comparison: 11/29/2008 Bilateral Screening Mammogram, [facility]. 12/25/2010 Bilateral Screening Mammogram, [facility]. 10/24/2014 Bilateral Screening Mammogram, [facility]. Tissue Density: The breast tissue is heterogeneously dense. This may lower the sensitivity of mammography. Findings: Analyzed By CAD. There are benign-appearing punctate and linear calcifications redemonstrated throughout the bilateral breasts more numerous in the right breast versus left breast. Benign-appearing bilateral axillary lymph nodes are redemonstrated. There is no suspicious new group of microcalcifications or new suspicious mass in either breast. Overall Assessment: Benign, BI-RAD 2 Management: Screening Mammogram of both breasts in 1 year. A clinical breast exam by your physician is recommended on an annual basis and results should be correlated with mammographic findings. Electronically signed and approved by: Rd Sharp M.D.
--- NOTE | 2022-12-12 10:42 | BD ---
EXAMINATION TYPE: Axial Bone Density DATE OF EXAM: 12/11/2022 CLINICAL HISTORY: 67 years old Female. ICD-10 CODE: Z78.0 POST MENOPAUSAL WITHOUT HRT Height: 63 Weight: 125.5 FRAX RISK QUESTIONS: Alcohol (3 or more units per day): no Family History (Parent hip fracture): no Glucocorticoids (More than 3mos): no History of Fracture in Adulthood: no Secondary Osteoporosis: 1. Type 1 Diabetes: no 2. Hyperthyroidism: no 3. Menopause before 45: no 4. Malnutrition: no 5. Chronic liver disease: no Rheumatoid Arthritis: no Current Tobacco Use: no RISK FACTORS HISTORY OF: Hip Fracture (Right/Left): no Spine Fracture: no History of Wrist Fracture: no Surgery to Spine/Hip(right/left)/Wrist (right/left): no Family History of Osteoporosis: no Active: yes Diet low in dairy products/other sources of calcium: no Postmenopausal woman: yes Take estrogen and/or progesterone medications: no Lost more than 2 inches in height since high school: no Frequent falls: no Poor Health: no Hyperparathyroidism: no Adrenal Insufficiency: no MEDICATIONS: Prednisone or other steroids: no Thyroid Medications: no Osteoporosis Medications: no Additional Medications: Insulin, metformin, anxiety meds, zinc, Additional History: EXAM MEASUREMENTS: Bone mineral densitometry was performed using the [employer] System. Bone mineral density as measured about the Lumbar spine is: ----- L1-L4(G/cm2): 1.056 T Score Values are as follows: ----- L1: -1.1 ----- L2: -1.8 ----- L3: -0.8 ----- L4: -0.7 ----- L1-L4: -1.0 Z Score Values are as follows: ----- L1: 0.8 ----- L2: 0.1 ----- L3: 1.1 ----- L4: 1.3 ----- L1-L4: 0.9 Bone mineral density has: decreased -2.4 % since study of: 10/24/2014 Bone mineral density about the R hip (g/cm2): 0.882 Bone mineral density about the L hip (g/cm2): 1.004 T Score values are as follows: -----R Neck: -0.4 -----L Neck: -1.2 -----R Total: -1.0 -----L Total: 0.0 Z Score values are as follows: -----R Neck: 0.6 -----L Neck: 1.5 -----R Total: 0.6 -----L Total: 1.6 Bone mineral density has: decreased -2.8 % since study of: 10/24/2014 FRAX%s: The graph provided illustrates a 8.6%% chance for a major osteoporotic fx and a 1.1%% chance for the hips probability for fx in 10 years time. IMPRESSION: Normal (Values between +1 and -1 indicate normal bone mass). Consider repeating this study in 5 year s or sooner if there is some new clinical indication. NOTE: T-SCORE=SD OF THE YOUNG ADULT MEAN.
== END | disposition home or self-care (01) ==
LOC: RADMAMWWP 14:15
PROVIDERS: ATTEND Family Medicine
DX: Z12.31 Encounter for screening mammogram for malignant neoplasm of breast (principal); M85.89 Other specified disorders of bone density and structure, multiple sites; Z78.0 Asymptomatic menopausal state; Z80.3 Family history of malignant neoplasm of breast
CPT/HCPCS: 77063; 77067; 77080

== ENCOUNTER → 2023-01-17 | Outpatient (CLI) | payer MEDICARE, BC ==
[2023-01-17 22:00] LABS: Basophils # (A) 0.04 X 10*3/uL (0.00-0.10); Basophils % (A) 0.7 %; Eosinophils # (A) 0.18 X 10*3/uL (0.04-0.35); Eosinophils % (A) 3.1 %; HCT 48.8 % (37.2-46.3); Immature Grans, Automated 0.2 %; Lymphocytes # (A) 2.13 X 10*3/uL (0.90-5.00); Lymphocytes % (A) 36.9 %; MCH 30.5 pg (27.0-32.0); MCHC 30.7 g/dL (32.0-37.0); MCV 99.2 fL (80.0-97.0); Mean Platelet Volume 8.9 fL (9.5-12.2); Monocytes # (A) 0.42 X 10*3/uL (0.20-1.00); Monocytes % (A) 7.3 %; NRBC Per 100 WBC 0 /100 WBCS (0.0-0.0); Neutrophils % (A) 51.8 %; Platelet Count 231 X 10*3/uL (140-440); RBC 4.92 X 10*6/uL (4.10-5.20); RDW 12.8 % (11.5-14.5); WBC 5.78 X 10*3/uL (4.50-10.00)
[2023-01-17 22:21] LABS: African American GFR (CKD) 99.5 (60.0-200.0); Anion Gap 10.9 mmol/L (10.00-18.00); Carbon Dioxide 25.1 mmol/L (20.0-27.5); Non-African American GFR(CKD) 85.9 (60.0-200.0); Potassium 4.1 mmol/L (3.5-5.5)
== END | disposition home or self-care (01) ==
LOC: LABPAT 09:18
PROVIDERS: ATTEND Obstetrics & Gynecology
DX: Z01.812 Encounter for preprocedural laboratory examination (principal); N81.11 Cystocele, midline; E11.9 Type 2 diabetes mellitus without complications; R94.31 Abnormal electrocardiogram [ECG] [EKG]
CPT/HCPCS: 80051; 82565; 82947; 85025; 87077; 87086; 87186; 93005

== ENCOUNTER 2023-01-26 08:44 | Day surgery (SDC) | payer MEDICARE, BC ==
[2023-01-22 09:03] VITALS: BMI 22.1
--- NOTE | 2023-01-23 07:43 | HP ---
HISTORY AND PHYSICAL For surgery on January 26. HISTORY OF PRESENT ILLNESS: This is a 67-year-old female, who presents with an increasing bulge and prolapse, with her cervix hanging into the undergarments. After thorough consultation, she is electing surgical repair, declining pessary use. She is still sexually active. She denies any other urinary or defecatory complaints. PAST MEDICAL HISTORY: Significant for diabetes. PAST SURGICAL HISTORY: Surgical repair of the right middle finger. CURRENT MEDICATIONS: 1. Farxiga 10 mg tablets orally in the morning. 2. Famotidine 20 mg tablets orally at bedtime. 3. Fluconazole 150 mg tablets once daily. 4. Metformin ER 500 mg extended-release tablets once daily with the evening meal. 5. Xanax 3 times daily. 6. Oral zinc. ALLERGIES: None known. FAMILY HISTORY: Significant for diabetes, kidney cancer, rectal polyps, and aortic aneurysm. REPRODUCTIVE HISTORY: Significant for normal spontaneous vaginal deliveries x6 in the past. SOCIAL HISTORY: The patient is . She denies alcohol or drug use. She has never been a smoker. REVIEW OF SYSTEMS: Otherwise, negative. PHYSICAL EXAMINATION: VITAL SIGNS: The patient is 5 feet 4 inches, 126 pounds, blood pressure 140/70. GENERAL: Within normal limits. HEENT: Exam reveals no thyromegaly. No cervical lymphadenopathy. Trachea midline. CHEST: Clear to auscultation in all albright anteriorly and posteriorly. BREASTS: Exam reveals breasts to be bilaterally symmetric to inspection. No skin changes, nipple discharge, axillary adenopathy, or discernible lesions. CARDIAC: Reveals regular rate and rhythm with no murmur, click, or rub. ABDOMEN: Soft and nontender. No organosplenomegaly. Active bowel sounds. EXTREMITIES: Reveal no edema. Good peripheral pulses. Good range of motion, upper and lower extremities. PELVIC: Tissues are reasonably well estrogenized. There is a grade 2 to 3 uterine prolapse along with a grade 3 to 4 cystocele noted. Adnexa are negative to palpation bilaterally. RECTAL: Reveals FIT-negative stool sample. No discernible lesions, rectocele, or masses. IMPRESSION: Increasingly symptomatic uterine prolapse and cystocele, requesting surgical repair, declining pessary use. PLAN: We will proceed with vaginal hysterectomy and anterior colporrhaphy. Ovaries will be inspected and left in situ if within normal limits to inspection. She understands the risks of surgery to include but not be exclusive of bleeding, infection, perforation or damage to bowel, bladder, ureters, or indeed any pelvic or abdominal organs. Risks of aspiration, nerve damage, or even are discussed. Unlikely but possible scenario of dyspareunia postoperatively also reviewed. All questions answered. [facility] pamphlet on the procedure had been given for her review. MMODL / IJN: [id number] /
[2023-01-26] MEDS ORDERED: ONDANSETRON 4 MG/2 ML VIAL ONE (09:03)
[2023-01-26] MEDS ORDERED: LACTATED RINGERS 1,000 ML IV ONE ×3 (09:12→12:43)
[2023-01-26 09:39] LABS: Glucose,Whole Blood 152 mg/dL (70-110)
[2023-01-26] MEDS ORDERED: VASOPRESSIN 20 UNIT/ML 1 ML VIAL IM ONE (11:14)
[2023-01-26] MEDS ORDERED: BACITRACIN ZINC 500 UNIT/GM OINT 28.4 GM TUBE TOPICAL ONE (11:15)
[2023-01-26] MEDS ORDERED: MIDAZOLAM 2 MG/2 ML VIAL IVP ONE (11:15)
[2023-01-26] MEDS ORDERED: fentaNYL (PF) 50 MCG/ML 2 ML AMP IVP ONE (11:16)
[2023-01-26] MEDS ORDERED: ROCURONIUM 10 MG/ML (5 ML VIAL) IV ONE (11:20)
[2023-01-26] MEDS ORDERED: SUCCINYLCHOLINE CHLORIDE 200 MG/10 ML VIAL IV ONE (11:20)
[2023-01-26] MEDS ORDERED: PROPOFOL 10 MG/ML 20 ML VIAL IV ONE (11:20)
[2023-01-26] MEDS ORDERED: fentaNYL (PF) 50 MCG/ML 2 ML AMP ONE (11:20)
[2023-01-26] MEDS ORDERED: MIDAZOLAM 2 MG/2 ML VIAL ONE (11:20)
[2023-01-26] MEDS ORDERED: GLYCOPYRROLATE 0.2 MG/ML 2 ML VIAL ONE (11:20)
[2023-01-26] MEDS ORDERED: MORPHINE SULFATE (PF) 0.3 MG/0.3 ML SYR ONE (11:20)
[2023-01-26] MEDS ORDERED: ACETAMINOPHEN IV (For NPO) 1,000 MG/100 ML VIAL ONE (11:20)
[2023-01-26] MEDS ORDERED: LIDOCAINE 2% INJ 20 MG/ML (2 ML VIAL) ONE (11:20)
[2023-01-26] MEDS ORDERED: NEOSTIGMINE 1 MG/ML 10 ML VIAL ONE (11:20)
[2023-01-26] MEDS ORDERED: IBUPROFEN 600 MG TAB PO PRN (12:34)
[2023-01-26] MEDS ORDERED: diphenhydrAMINE 50 MG/ML 1 ML VIAL IVP PRN (12:34)
[2023-01-26] MEDS ORDERED: SIMETHICONE 80 MG CHEWABLE PO PRN (12:34)
[2023-01-26] MEDS ORDERED: ONDANSETRON 4 MG/2 ML VIAL IVP PRN (12:34)
[2023-01-26] MEDS ORDERED: METOCLOPRAMIDE 5 MG/ML 2 ML VIAL IVP PRN (12:34)
--- NOTE | 2023-01-26 12:34 | P.OP ---
Date of Procedure: 01/26/23 Preoperative Diagnosis: Increasingly symptomatic uterine prolapse and cystocele Postoperative Diagnosis: Same, normal-appearing ovaries bilaterally Procedure(s) Performed: Vaginal hysterectomy, anterior colporrhaphy Anesthesia: LEIGHTONA Surgeon: Riri Martin Watch Crystal Cutter #1: Obed Cameron Estimated Blood Loss (ml): 100 IV fluids (ml): 900 Urine output (ml): 25 Pathology: other (Cervix and uterus) Condition: stable Disposition: PACU Operative Findings: Normal-appearing, atrophic ovaries bilaterally, left in situ per patient's wishes Description of Procedure: Patient is brought to the operating suite where a general anesthetic is administered, spinal with Duramorph was given in the preoperative area. Antibiotics given. The cervix, vagina, perineum, periurethral areas are all p repped and draped in the usual sterile fashion as the patient is positioned in the dorsal lithotomy position. The appropriate timeout is performed to assure proper patient and procedural identification. Weighted speculum was placed into the vagina, bladder is drained for 25 mL of clear yellow urine. The cervix is injected circumferentially with a dilute Pitressin solution. A alturas blade scalpel is used circumferentially with a V positioning at 6:00. Sponge rolled finger is used to sweep the mucosa from the underlying fascial plane. Peritoneum is entered at 6:00 with Metzenbaum scissors, suture tied with 2-0 Vicryl and held with a hemostat. Large billed speculum was then placed into the peritoneal cavity. At all times the mucosa is swept well from the operative field to avoid bladder and/or ureteral injury. The right uterosacral ligament is identified, clamped cut and suture ligated. It is held with a hemostat. Same procedure is carried out contralaterally. Uterine vasculature is identified, clamped cut and suture ligated. 2 additional pedicles are taken superior to the vessels. Again, at all times the mucosa is swept well from the field to avoid any injury. Peritoneum is now entered at 12:00, the uterus is "walked out" posteriorly, Ramiro clamps are used across the final pedicles, the pedicles are cut, tied with 0 Vicryl in a Gamaliel stitch, flashed, retied for ex cellent hemostasis bilaterally. A sponge stick is used to visualize the ovaries, they are high in the peritoneal cavity, atrophic, left in situ per patient's wishes. All pedicles are clean and dry. The 2-0 Vicryl suture is now brought around in a pursestring fashion to close the peritoneum. The uterosacral cardinal ligaments are brought across in the midline to incorporate the opposite ligament as well as mucosa. An additional cleabt-xf-pauks sutures used close the vaginal cuff. The anterior mucosa is held with Allis clamps, the mucosa is injected with dilute Pitressin and a Metzenbaum scissor is used to undermine the mucosa to approximate 1.5 cm inferior to the urethra. A sponge rolled finger is used to sweep the fascial plane away from the overlying mucosa bilaterally. 2-0 Vicryl suture is used after the Bellamy catheter is placed again draining the bladder. The 2-0 Vicryl is used in an interrupted fashion to bring the fascial edges together thereby completely eliminating the cystocele. Metzenbaum scissors are used to trim the mucosa bilaterally. 2-0 Vicryl is used in a running locking stitch to close the anterior vaginal wall, cystocele completely been reduced. Bellamy is noted to be draining clear urine. All sponge needle and enhancement counts are correct. The vagina is packed with one-inch iodophor gauze with basic tracing. Patient is brought back to the recovery room in very good condition with stable vital signs including blood pressure 114/67, pulse 69.
[2023-01-26 12:46] LABS: Glucose,Whole Blood 134 mg/dL (70-110)
[2023-01-26] MEDS: KETOROLAC 15 MG/ML 1 ML VIAL IVP PRN ×2 (12:58→19:26)
[2023-01-26] MEDS ORDERED: ONDANSETRON 4 MG/2 ML VIAL IVP ONE (13:04)
--- NOTE | 2023-01-26 13:04 | P.ANPRN ---
Procedure Note - Anesthesia - Epidural/Spinal Spinal Time Out Performed: Yes Date of Procedure: 01/26/23 Procedure Start Time: 11:15 Procedure Stop Time: 11:20 Location of Patient: PreOp Indication: Acute Post-Operative Pain Sedation Type: Sedate with meaningful contact maintained Preparation: Sterile Prep Position: Sitting Catheter: None Needle Guage: 25 Injectate: DURAMORPH 300MCG, FENTANYL 25MCG Narrative: spinal at L3-L4 Blood Aspirated: No Pain Paresthesia on Injection Noted: No Events: Uneventful and Well Tolerated
[2023-01-26] MEDS ORDERED: HYDROmorphone 0.5 MG/0.5 ML SYRINGE IVP ONE ×2 (13:08→13:32)
[2023-01-26] MEDS ORDERED: ALPRAZolam 0.5 MG TAB PO PRN (18:32)
[2023-01-26] MEDS: metFORMIN 500 MG TAB PO SCH ×2 (20:42→22:15)
[2023-01-26] MEDS: FAMOTIDINE 20 MG TAB PO SCH (22:04)
[2023-01-27] MEDS: KETOROLAC 15 MG/ML 1 ML VIAL IVP PRN (03:24)
[2023-01-27 07:17] LABS: Glucose,Whole Blood 119 mg/dL (70-110)
--- NOTE | 2023-01-27 08:06 | P.DS ---
Providers Date of admission: 01/26/23 Expected date of discharge: 01/27/23 Attending physician: Riri Martin Primary care physician: [facility] Course: This is a 67-year-old female who underwent vaginal hysterectomy and anterior colporrhaphy yesterday under my care. Ovaries were normal to inspection and left in situ per her wishes. She did receive a spinal with Duramorph. Please see dictated operative note for details. Vaginal packing has been removed. Bellamy catheter is removed. Patient is enjoying a regular breakfast tray. She has active bowel sounds, no CVA tenderness. Scant vaginal bleeding. Vital signs are stable and she has remained afebrile. Her sugars a been stable. Patient will when ready void, void will be measured along with post void residual, and if residual less than 100 patient will be discharged home later this morning. Patient is in very good condition for discharge home. She will resume her home medications as preop. No intercourse tampons or douching. No heavy lifting. No driving for 2 weeks. She will use [id number] Advil or Aleve, or Motrin as needed for pain. She will call with any fevers shakes or chills, foul smelling or copious lochia, with the passage of large blood clots, or indeed with any concerns. Assessment: Doing well first postoperative day Patient Condition at Discharge: Good Plan - Discharge Summary Discharge Rx Participant: No New Discharge Prescriptions: No Action Dapagliflozin Propanediol [Farxiga] 10 mg PO DAILY ALPRAZolam [Xanax] 0.5 - 1 mg PO HS PRN PRN Reason: Anxiety Zinc Gluconate [Zinc] 50 mg PO DAILY Famotidine [Pepcid] 20 mg PO DAILY Cyanocobalamin [Vitamin B-12] 500 mcg PO DAILY Insulin Aspart [NovoLOG Flexpen] 0 units SQ DAILY metFORMIN HCL [Glucophage] 500 mg PO BID Discharge Medication List ALPRAZolam [Xanax] 0.5 - 1 mg PO HS PRN 05/08/16 [History] Dapagliflozin Propanediol [Farxiga] 10 mg PO DAILY 05/08/16 [History] Zinc Gluconate [Zinc] 50 mg PO DAILY 07/28/21 [History] metFORMIN HCL [Glucophage] 500 mg PO BID 07/28/21 [History] Famotidine [Pepcid] 20 mg PO DAILY 07/31/21 [History] Cyanocobalamin [Vitamin B-12] 500 mcg PO DAILY 01/22/23 [History] Insulin Aspart [NovoLOG Flexpen] 0 units SQ DAILY 01/22/23 [History] Follow up Appointment(s)/Referral(s): Riri Martin MD [STAFF PHYSICIAN] - 2 Weeks
[2023-01-27] MEDS: FAMOTIDINE 20 MG TAB PO SCH (08:58)
[2023-01-27] MEDS: metFORMIN 500 MG TAB PO SCH (08:58)
[2023-01-27 09:04] VITALS: BP 129/71; PULSE 90; RESP 14; TEMP 98.2
--- NOTE | 2023-01-27 09:32 | P.PN ---
Progress Note - Text Progress Note Date: 01/27/23 (2276) Anesthesia Postop day 1 Subjective: Status Post vaginal hysterectomy with Duramorph. Patient seen and examined. Doing well without complaint. VAS 0. Vomiting yesterday now resolved denies pruritus. Afebrile. Gross lower extremity strength intact. Without apparent anesthetic complications. Objective: Vital signs reviewed Heart: Regular Rate Lungs: Good chest excursion Abdomen: Appears nondistended Assessment: Status post vaginal hysterectomy with Duramorph postop day 1 Plan: Continue current care with your medical management.
[2023-01-27] MEDS ORDERED: ACETAMINOPHEN TAB 325 MG TAB PO PRN (12:35)
== END 2023-01-27 12:34 ==
LOC: OR 08:44 → 4FBP 12:42 → OR 01-27 12:34
PROVIDERS: ATTEND Obstetrics & Gynecology
DX: N80.03 Adenomyosis of the uterus (principal); N81.4 Uterovaginal prolapse, unspecified; G89.18 Other acute postprocedural pain; E11.9 Type 2 diabetes mellitus without complications; Z79.84 Long term (current) use of oral hypoglycemic drugs; Z79.899 Other long term (current) drug therapy; Z83.3 Family history of diabetes mellitus; Z83.71 Family history of colonic polyps
CPT/HCPCS: 86900; 86901; 86850; 88307; 58260; 57240; 64447; J2250; J1200; J2765; J0690; J2405; J3010; J1885 ×2; J1170

== ENCOUNTER → 2023-10-22 | Outpatient (CLI) | payer MEDICARE, BC ==
--- NOTE | 2023-10-22 15:03 | US ---
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 GLAND SIZE: Right Lobe: 5.7 x 2.3 x 2.3 cm Overall Parenchyma: homogeneous Left Lobe: 5.5 x 1.8 x 2.0 cm Overall Parenchyma: homogeneous Isthmus Thickness: 0.8 cm NODULES RIGHT: # of nodules measured on right: 0 LEFT: # of nodules measured on left: 0 ISTHMUS: # of nodules measured in the isthmus: 2 Subcentimeter nodules noted, one hypoechoic, one isoechoic. AOC Right submandibular = 3.3 x 1.4 x 3.8 cm Left submandibular = 3.0 x 1.1 x 3.0 cm IMPRESSION: Glandular enlargement without distinct nodule. 2017 ACR TI-RADS LEVEL: *Highest TI-RADS level nodule reported
== END | disposition home or self-care (01) ==
LOC: RADUSWWP 14:12
PROVIDERS: ATTEND Family Medicine
DX: K11.1 Hypertrophy of salivary gland (principal)
CPT/HCPCS: 76536

== ENCOUNTER → 2024-01-25 | Outpatient (CLI) | payer MEDICARE, BC ==
--- NOTE | 2024-01-27 12:20 | MR ---
EXAMINATION TYPE: MR shoulder RT wo con DATE OF EXAM: 01/25/2024 COMPARISON: Outside right shoulder x-ray January 18, 2024 HISTORY: Rt shoulder pain into arm for 6 to 8 months. TECHNIQUE: Multiplanar, multisequence imaging of the right shoulder is performed without contrast. FINDINGS: Rotator Cuff: Increased signal in the infraspinatus and supraspinatus tendons with surrounding fluid. Significant tear of the supraspinatus tendon involving 80% with some retained intact fibers coronal image 13 noted. Heterogeneity in the subscapularis tendon with surrounding fluid. Rotator cuff muscle bulk is preserved. Acromioclavicular Joint: Mild narrowing and spurring with moderate capsular hypertrophy. Glenohumeral Joint: Small to moderate size joint effusion Labrum: The labrum appears grossly intact given limitation of non-arthrogram study. Biceps Tendon: The long head of biceps is in normal location within bicipital groove. Increased signa l and thickening of the intracapsular portion Bone marrow signal: No focal abnormal marrow signal is appreciated. Other: No additional significant abnormality is appreciated. IMPRESSION: 1. Tendinosis/partial tearing of the infraspinatus tendon. More prominent tendinosis of the supraspin atus tendon with more prominent significant distal tear. Tendinosis/partial tearing of the subscapula ris tendon. 2. Tendinosis/partial tearing of the long head of biceps tendon. 3. Fairly moderate degenerative changes are present as detailed above.
== END | disposition home or self-care (01) ==
LOC: RADMRIMAIN 11:00
PROVIDERS: ATTEND Orthopaedic Surgery
DX: M19.011 Primary osteoarthritis, right shoulder (principal); M75.111 Incomplete rotator cuff tear or rupture of right shoulder, not specified as traumatic

== ENCOUNTER 2024-02-17 11:23 | Day surgery (SDC) | payer MEDICARE, BC ==
--- NOTE | 2024-02-15 08:52 | P.HPOR ---
History of Present Illness H&P Date: 02/15/24 Chief Complaint: Right shoulder pain The patient is a 68-year-old [id number] retired female who presents with right shoulder pain after a fall approximately 8 months ago. She is having pain with overhead use and at night. She has limited range of motion. She's tr ied medications, previous injections, in addition to a home exercise program. Review of Systems As per HPI Past Medical History Past Medical History: Diabetes Mellitus Additional Past Medical History / Comment(s): past hx of palpitations, chest pain History of Any Multi-Drug Resistant Organisms: None Reported Past Surgical History: Hysterectomy, Orthopedic Surgery Additional Past Surgical History / Comment(s): middle rt hand sx bladder suspesnions with hysterectomy Past Anesthesia/Blood Transfusion Reactions: Motion Sickness Smoking Status: Never smoker - Past Family History Brother(s) Family Medical History: Cancer Additional Family Medical History / Comment(s): skin Medications and Allergies Home Medications Medication Instructions Recorded Confirmed Type ALPRAZolam [Xanax] 0.5 - 1 mg PO HS PRN 05/08/16 02/12/24 History Dapagliflozin Propanediol [Farxiga] 10 mg PO DAILY 05/08/16 02/12/24 History Zinc Gluconate [Zinc] 50 mg PO DAILY 07/28/21 02/12/24 History metFORMIN HCL [Glucophage] 500 mg PO BID 07/28/21 02/12/24 History Famotidine [Pepcid] 20 mg PO DAILY 07/31/21 02/12/24 History Cyanocobalamin [Vitamin B-12] 500 mcg PO DAILY 01/22/23 02/12/24 History Insulin Aspart [NovoLOG Flexpen] 0 units SQ DAILY 01/22/23 02/12/24 History Allergies Allergy/AdvReac Type Severity Reaction Status Date / Time No Known Allergies Allergy Verified 02/12/24 15:52 Physical Examination - Shoulder right Tenderness with palpation: anterior, bicipital groove Pain: with abduction, with forward flexion ROM: abduction: 140 degrees ROM: internal rotation: upper lumbar ROM: external rotation: 60 degrees Crepitus with motion: Yes Strength: abduction: 5/5 Strength: external rotation: 4/5 Tests: internal impingement tests: positive, external impingment tests: positive Results Patient is a well-developed well-nourished female approximately 5 foot 3, 126 pounds of mesomorphic habitus. HEENT exam is nonfocal, neck supple. She's tender about the right shoulder anterior subacromial space. Moderate crepitus is noted. Arita, Neer sign, and speed test are positive. Her distal neurov ascular appears intact in the right upper extremity. - Diagnostic results Shoulder MRI: image reviewed (MRI of the right shoulder shows evidence of a full-thickness tear involving the supraspinatus. Significant bicipital tendinosis/fluid is noted.) Assessment and Plan Assessment: Right rotator cuff tear/symptomatic Right proximal bicipital tendinosis Plan: I talked to the patient at length regarding her condition and treatment options. At this point she is quite symptomatic despite conservative measures. After a thorough discussion she opts to proceed with surgery. We'll plan to proceed with right shoulder arthroscopy with probable subacromial decompression, rotator cuff repair, possible biceps tenotomy versus tenodesis. Risks and benefits were discussed at length in layman's terms. We will likely perform that as an outpatient procedure.
[~2024-02-17 11:23] MED LIST: HYDROmorphone 0.5 MG/0.5 ML SYRINGE IVP PRN; fentaNYL (PF) 50 MCG/ML 2 ML AMP IV PRN
[2024-02-17] MEDS: DEXAMETHASONE SOD PHOSPHATE 4 MG/ML 1 ML VIAL IV ONE (12:19)
[2024-02-17] MEDS: ONDANSETRON 4 MG/2 ML VIAL IVP ONE (12:20)
[2024-02-17 12:26] LABS: Glucose,Whole Blood 138 mg/dL (70-110)
[2024-02-17] MEDS: SCOPOLAMINE 1 MG/72 HR PATCH TRANSDERM ONE (12:26)
[2024-02-17] MEDS: LACTATED RINGERS 1,000 ML IV SCH (12:32)
[2024-02-17] MEDS: MIDAZOLAM 2 MG/2 ML VIAL IVP ONE (12:50)
[2024-02-17] MEDS ORDERED: ROPIVACAINE 5 MG/ML 30 ML VIAL ONE (12:55)
[2024-02-17] MEDS ORDERED: MIDAZOLAM 2 MG/2 ML VIAL ONE (12:55)
[2024-02-17] MEDS ORDERED: fentaNYL (PF) 50 MCG/ML 2 ML AMP ONE (12:55)
[2024-02-17] MEDS ORDERED: SUCCINYLCHOLINE CHLORIDE 200 MG/10 ML VIAL IV ONE (12:55)
[2024-02-17] MEDS ORDERED: DEXAMETHASONE SOD PHOSPHATE 4 MG/ML 1 ML VIAL ONE (12:55)
[2024-02-17] MEDS ORDERED: LIDOCAINE 1% INJ 10MG/ML (20 ML MDV) ONE (12:55)
[2024-02-17] MEDS ORDERED: PROPOFOL 10 MG/ML 20 ML VIAL IV ONE (12:55)
--- NOTE | 2024-02-17 14:22 | P.OP ---
Date of Procedure: 02/17/24 Preoperative Diagnosis: Right rotator cuff tear Postoperative Diagnosis: 4 cm right rotator cuff tear/high-grade partial-thickness tear proximal biceps Procedure(s) Performed: Right shoulder arthroscopic subacromial decompression/biceps tenotomy/rotator cu ff repair Implants: Arthrex 4.75 mm swivel lock anchor x 2, 5.5 mm swivel lock anchor x 2 Anesthesia: LEIGHTONA, traci Surgeon: Roberto Toscano Cosmetician #1: Hilton Lopez Estimated Blood Loss (ml): 10 Pathology: none sent Condition: stable Disposition: PACU Indications for Procedure: The patient is a 68-year-old female who presents with progressive right shoulder pain and weakness after a previous injury despite attempted conservative measures. A discussion of the risks and benefits of operative intervention versus continued conservative measures was made with the patient. She opted to proceed with surgery. Operative risks include infection, neurovascular injury, development of blood clots, possible tendon rerupture, possible postoperative stiffness, possible need for subsequent procedures was discussed. Informed consent was obtained. Operative Findings: As below Description of Procedure: The patient was brought to the operating room, and after induction of general anesthesia was placed in a beachchair position. A preoperative interscalene block was placed for postoperative analgesia. I examined the right shoulder. There was no gross block to passive motion or gross glenohumeral instability. The right upper extremity was prepped and draped in normal fashion. The bony outlines the acromion, distal clavicle, and coracoid process were outlined with a skin marker. The glenohumeral joint was inflated with 50 mL of saline utilizing a spinal needle from posterior approach. A posterior portal was made through a 5 mm skin incision 1 cm medial and inferior to the posterior lateral border time. A blunt trocar was used to easily into the joint. Diagnostic arthroscopy was performed. An anterior portal was made just lateral to the coracoid process entering the joint above the subscapularis tendon. The subscapularis tendon appeared to be intact. Anterior labrum was intact. The inferior recess was inspected. The posterior labrum was intact. There was a high-grade partial-thickness tear of the long head of the biceps involving interarticular portion. It was elected to proceed with release at this point. This was released from the superior labrum with electrocautery and was allowed to retract to the bicipital groove. On inspection the rotator cuff, a full- thickness tear involving the supraspinatus and infraspinatus was noted with mild retraction. The arthroscope was placed into the subacromial space. A lateral portal was made 2 centimeters inferior to the anterior lateral border of the acromion. The rotator cuff was then mobilized with a traction suture. This was then easily brought back to the greater tuberosity. The soft tissue on the undersurface of the acromion was debrided with a motorized shaver and electrocautery clearly defining the anterior medial and lateral borders as well as the distal clavicle. An anterior inferior acromioplasty was performed with a motorized judi starting anterolateral, then extending this posteriorly, then extending this medially. I converted to a flat acromion and this was verified in the posterior and lateral viewing portals. The greater tuberosity was lightly decorticating with a shaver down to a bleeding bony surface. An accessory superior lateral portal was made just off the lateral edge of the acromion for anchor placement. 2 anchors were then placed just off the articular surface with the appropriate starting awl. 4.75 mm anchors preloaded with #2 fiber tape were placed. Good purchase was obtained. These fiber tapes were then passed the rotator cuff with a scorpion suture passer. A lateral row was created crisscrossing these tapes. 5.5 mm swivel lock anchors x2 were placed laterally. Good purchase was obtained. Final arthroscopic view showed adequate compression at the footprint. The arthroscope was then removed. The portals were closed with simple 3-0 nylon sutures. A sterile dressing was applied in addition to an abductor brace. The patient was then awoken from general anesthesia and transferred to recovery room in good condition. Blood loss was estimated at 10 mL. No complications were incurred. Sponge and needle counts were correct in the case. Hilton ARANGO assisted and the major components of the case to include arm positioning, anchor placement, and rotator cuff repair.
[2024-02-17 14:31] VITALS: RESP 16; TEMP 97
[2024-02-17 15:49] VITALS: BP 132/80; PULSE 64
--- NOTE | 2024-02-17 19:07 | P.ANPRN ---
Procedure Note - Anesthesia - Nerve Block Performed Right Interscalene Single Time Out Performed: Yes (1237) Date of Procedure: 02/17/24 Location of Patient: PreOp Indication: Acute Post-Operative Pain (Right shoulder pain), Analgesia, Dx/Pain Location, Requested by Surgeon Specifically requested for management of pain by DrInga: Roberto Toscano Sedation Type: Sedate with meaningful contact maintained Preparation: Sterile Prep Position: Supine Catheter: None Needle Types: Pajunk Needle Gauge: 21 Ultrasound used to visualize needle placement: Yes Ultrasound used to observe medication spread: Yes Injectate: 0.5% Ropivacaine (see comment for volume) (30 mL +4 mg of Decadron) Blood Aspirated: No Resistance on Injection: Normal Image Stored and Saved: Yes Events: Uneventful and Well Tolerated
== END 2024-02-17 16:35 | disposition home or self-care (01) ==
LOC: OR 11:23
PROVIDERS: ATTEND Orthopaedic Surgery
DX: M75.111 Incomplete rotator cuff tear or rupture of right shoulder, not specified as traumatic (principal); G89.18 Other acute postprocedural pain; E11.9 Type 2 diabetes mellitus without complications; Z79.4 Long term (current) use of insulin; Z79.84 Long term (current) use of oral hypoglycemic drugs; Z90.710 Acquired absence of both cervix and uterus; Z79.899 Other long term (current) drug therapy
CPT/HCPCS: 64415; 29826; 29827; 29828; C1713 ×3; C1894; J2250; J0330; J1100; J0690; J2405; J2001; J3010; J2795; J2704